=== PATIENT | male | born 1965 | race Caucasian/White ===

== ENCOUNTER 2022-08-15 10:36 | Emergency (ER) | payer MEDICAID, SELFPAY ==
[2022-08-15 11:02] VITALS: BP 218/130; PULSE 74; RESP 18; TEMP 36.5; O2SAT 98; BMI 22.9
--- NOTE | 2022-08-15 11:18 | W.ED.GENADLT ---
HPI - General Adult General: Chief complaint: Dizziness Stated complaint: High Blood Pressure Time Seen by Provider: 08/15/22 11:09 History of Present Illness: [57]yo patient w/ x hx of HTN not currently on medication presenting to the ED with complaints that his BP is not well controlled. Patient tells me that earlier today, patient went to his primary care's office and was found to have elevated blood pressure. Patient was then told to come to the emergency room. Patient was previously on blood pressure medicine in 2016 on lisinopril atenolol. Patient has been seen no longer takes any medication since then. However, the patient noticed today BP is uncontrolled. Denies chest pain, SOB, palpitation, N/V/D, pain radiating to the shoulder, headache, vision changes, LOC, or focal neurological deficits. Patient also denies light-headedness, syncope, vertigo abdominal pain, back pain. Tolerating PO meds without issues. Onset: chronic Duration: ongoing Location: home Severity: mild Associated symptoms: Deny chest pain, dyspnea, nausea, rash, palpitations or vomiting Review of Systems Const: Denies: fever(s) or chills Eyes: Denies: change in vision ENMT: Denies: mouth pain Card: Denies: chest pain or palpitations Resp: Denies: dyspnea or non-productive cough GI: Denies: abdominal pain, nausea, vomiting or diarrhea : Denies: dysuria Musc: Denies: extremity pain Skin/Breast: Denies: rash or new lesions Neuro: Denies: weakness in extremities Psych: Reports: other (Normal mood) Eron/Lymph: Denies: easy bruising [facility] ED PFSH: Medical History (Updated 08/15/22 @ 12:37 by Leatha Huynh MD) Psychiatric care Physical Exam Const: COMMON NORMALS: alert HENMT: COMMON NORMALS: atraumatic HEAD & SCALP: atraumatic MOUTH: moist mucous membranes not abnormal Eye: COMMON NORMALS: EOMs intact bilaterally and conjunctivae normal CONJUNCTIVA: Yes conjunctivae normal Neck/C-Spine: COMMON NORMALS: full ROM and supple Resp: COMMON NORMALS: normal respiratory effort and clear to auscultation bilaterally AUSCULTATION: clear to auscultation bilaterally Cardio: COMMON NORMALS: regular rate RATE: regular rate GI: COMMON NORMALS: Soft to palpation and non-tender PALPATION: Yes Soft to palpation Extremity: COMMON NORMALS: full ROM Neuro: SENSORIUM/ORIENTATION: Yes alert MOTOR EXAM: No Abnormal motor strength present and Other motor observations present (no focal motor deficits) Psych: COMMON NORMALS: speech normal SPEECH: Yes normal speech MOOD & AFFECT: Yes euthymic mood Course Vital Signs: Vital signs: Vital Signs Temperature 97.7 F 08/15/22 11:02 Pulse Rate 74 08/15/22 11:02 Respiratory Rate 18 08/15/22 11:02 Blood Pressure 180/122 08/15/22 14:12 Pulse Oximetry 98 08/15/22 11:02 Oxygen Delivery Me thod 08/15/22 11:02 MDM - General Adult Medical Decision Making [57]yo patient w/ hx of HTN not currently on medicationmedications presenting to the ED with high BP readings x 1 day without other medical complaints. BP in the ED of . Rest of exam including full neuro exam intact. Given presentation, history and exam, I do not suspect aortic dissection, hypertensive encephalopathy, intracranial hemorrhage, ACS, TIA/CVA, flash pulmonary edema. Intervention: Nifedipine 30mg x 1 PRN elevated BP [12:45pm] On reassessment, BP improved on reassessment. Patient continues to be symptom-free at this time. Do not suspect an emergent cause., Patient is noted to have creatinine 1.3. Discussed this extensively with patient and instructed that he needs to follow-up with his primary care provider for reassessment kidney function in a week and start hypertension meds. Discussed with the patient the importance of logging BPs and following up with his PCP for adjustment of BP if BP continues to be persistently high. Given return instructions. I have given patient follow up with our spring encaser to be seen by our outpatient by nerw PCP for management of blood pressure. Patient aware of a call from our spring encaser to schedule for appointment(s) and verbalizes understanding of the importance of following up. Patient requests for lisinopril and atenolol as he reports those worked for him in the past. Rx: Amlodipine 5mg QDaily for HTN, lisinorpil 40mg for hypertension, and atenolol 50mg for hypertension Based on history, exam, vital signs, and work up (as indicated) I do not suspect an ongoing emergent medical condition, and I believe the patient is safe for discharge and outpatient follow-up. The plan of care was discussed with the patient and all questions were answered. The patient agrees with the plan of care and is discharged in stable condition with verbal and written instructions, and verbalized understanding and ability to comply. I discussed the diagnosis and treatment plan at length with the patient. The patient understands signs and symptoms (including those which are new or worsening) which should prompt return to the ED. The patient is to seek prompt outpatient follow-up as noted verbally and/or in the discharge instructions. At the time of discharge the patient is well-appearing, well-hydrated, non-toxic, and assures appropriate follow-up as an outpatient. Lab Data : 08/15/22 11:08/15/22 11: Laboratory Results WBC 8.4 10^3/uL (4.0-10.0) 08/15/22 11: RBC 4.16 10^6/uL (4.1-5.3) 08/15/22 11:27 Hgb 12.5 g/dL (11.7-16.6) 08/15/22 11:27 Hct 38.3 % (42.0-52.0) L 08/15/22 11:27 MCV 92.1 fl (80-94) 08/15/22 11:27 MCH 30.0 pg (28.0-34.0) 08/15/22 11:27 MCHC 32.6 g/dL (30.0-36.0) 08/15/22 11: RDW 13.1 % (12.1-15.1) 08/15/22 11:27 Plt Count 184 10^3/cmm (130-400) 08/15/22 11: MPV 11.4 fL (7.4-10.4) H 08/15/22 11:27 Neut % (Auto) 69.3 % 08/15/22 11: Lymph % (Auto) 21.9 % 08/15/22 11: [place] % (Auto) 7.5 % 08/15/22 11:27 Eos % (Auto) 0.7 % 08/15/22 11:27 Baso % (Auto) 0.2 % 08/15/22 11:27 Neut # (Auto) 5.83 10^3/uL (1.8-7.7) 08/15/22 11:27 Lymph # (Auto) 1.8 10^3/uL (0.8-4.8) 08/15/22 11:27 [place] # (Auto) 0.6 10^3/uL (0.2-0.9) 08/15/22 11:27 Eos # (Auto) 0.1 10^3/uL (0.0-0.8) 08/15/22 11:27 Baso # (Auto) 0.0 10^3/uL (0.0-0.1) 08/15/22 11:27 Nucleated RBC % (auto) 0 % 08/15/22 11:27 Nucleated RBCs # 0.0 /100WBC 08/15/22 11:27 Sodium 138 mmol/L (136-145) 08/15/22 11:27 Potassium 4.3 mmol/L (3.5-5.1) 08/15/22 11:27 Chloride 101 mmol/L (98-107) 08/15/22 11:27 Carbon Dioxide 27 mmol/L (22-29) 08/15/22 11:27 Anion Gap 14.3 (5-19) 08/15/22 11:27 BUN 25 mg/dL (6-20) H 08/15/22 11:27 Creatinine 1.3 mg/dL (0.7-1.2) H 08/15/22 11:27 GFR Calculation 56.7 mL/min (90-130) L 08/15/22 11:27 Glucose 94 mg/dL (65-115) 08/15/22 11:27 Calculated Osmolality 290 mOsm/kg (285-295) 08/15/22 11:27 Calcium 10.1 mg/dL (8.5-10.5) 08/15/22 11:27 Discharge Plan Discharge Patient Disposition: Home Clinical Impression: Hypertension, DONNA (acute kidney injury) Condition: Stable Prescriptions: New amlodipine 5 mg tablet 5 mg PO DAILY 14 Days Qty: 14 0RF lisinopril 40 mg tablet 40 mg PO DAILY 20 Days Qty: 20 0RF atenolol 50 mg tablet 50 mg PO DAILY 20 Days Qty: 20 0RF Discharge Orders: Discharge ED (Routine); Ordered 08/15/22 Ordered By: Leatha Huynh Discharge Diet: Advance as tolerated Discharge Activity: Increase activity as tolerated Patient Instructions: Hypertension (ED) Activity Restrictions/Additional Instructions: You need to follow-up with your primary care provider for further adjustment of your blood pressure. Your blood pressure puts you at risk for developing strokes and heart attack. Therefore it is very important for you to follow-up with this number to see if the numbers improve gradually. Because blood pressure adjustment is a gradual process, were not able to change it in 1 visit. Therefore please log your blood pressure and follow-up with your primary care provider in the next 72 hours for further adjustment of your blood pressures. Please follow up with your primary care provider in1 week to check your kidney function again. Coding Level of Care Code ED Instructor Traffic Safety for Chg Fwd Exam Comprehensive
[2022-08-15 11:34] LABS: Basophils % 0.2 %; Eosinophils # 0.1 10^3/uL (0.0-0.8); Eosinophils % 0.7 %; Hematocrit 38.3 % (42.0-52.0); Hemoglobin 12.5 g/dL (11.7-16.6); Lymphocytes # 1.8 10^3/uL (0.8-4.8); Lymphocytes % 21.9 %; Mean Corpuscular HGB Conc 32.6 g/dL (30.0-36.0); Mean Corpuscular Volume 92.1 fl (80-94); Mean Platelet Volume 11.4 fL (7.4-10.4); Monocytes # 0.6 10^3/uL (0.2-0.9); Monocytes % 7.5 %; Neutrophils # 5.83 10^3/uL (1.8-7.7); Neutrophils % 69.3 %; Nucleated Red Blood Cells % 0 %; Platelet Count 184 10^3/cmm (130-400); Red Blood Count 4.16 10^6/uL (4.1-5.3); Red Cell Distribution Width 13.1 % (12.1-15.1); White Blood Count 8.4 10^3/uL (4.0-10.0)
--- NOTE | 2022-08-15 11:34 | PC.NURSE ---
pt reported he checked his bp today because he didn't feel good and felt dizzy, found it was elevated. denies chest pain, dyspnea, headache, nausea, vomiting, diarrhea, or other symptoms. reports he has been out of all his medications since 2016. pt alert and oriented, lung sounds clear, bowel sounds present. skin pink/warm/dry.
[2022-08-15 11:53] LABS: Anion Gap 14.3 (5-19); Blood Urea Nitrogen 25 mg/dL (6-20); Calcium 10.1 mg/dL (8.5-10.5); Carbon Dioxide 27 mmol/L (22-29); Chloride 101 mmol/L (98-107); Glomerular Filtration Rate 56.7 mL/min (90-130); Glucose 94 mg/dL (65-115); Osmolality Calculated 290 mOsm/kg (285-295); Potassium 4.3 mmol/L (3.5-5.1); Sodium 138 mmol/L (136-145)
[2022-08-15 11:58] VITALS: BP 192/128
[2022-08-15] MEDS: NIFEdipine ER (24 hr) 30 mg Tablet 60 MG PO ×2 (12:18→13:15)
[2022-08-15] MEDS: hyDRALAzine 25 mg Tablet PO (13:14)
[2022-08-15 13:43] VITALS: BP 168/139
[2022-08-15] MEDS: lisinopril 20 mg Tablet 40 MG PO (13:52)
[2022-08-15] MEDS: carvedilol 25 mg Tablet PO (13:52)
[2022-08-15 14:12] VITALS: BP 180/122
[2022-08-15 14:52] VITALS: BP 162/109; PULSE 98; RESP 16; O2SAT 98
--- NOTE | 2022-08-15 15:16 | DCPLANNER ---
lean manager had message to speak with patient about getting established with a primary care physician. senior marketing manager called phone number [phone], foster care case manager unable to speak with patient at this time. senior marketing manager did leave a voicemail for patient to return case loader operator phone call.
== END 2022-08-15 14:53 | disposition home or self-care (01) ==
PROVIDERS: Emergency Provider Emergency Medicine
DX: I10 Essential (primary) hypertension (principal); N17.9 Acute kidney failure, unspecified
CPT/HCPCS: 80048; 85025; 99283

== ENCOUNTER 2022-10-01 15:03 | Outpatient (CLI) | payer MEDICAID, SELFPAY ==
--- NOTE | 2022-10-01 15:26 | XRR_ITS ---
PROCEDURE INFORMATION: Exam: XR Right Hip Exam date and time: 10/01/2022 3:37 PM Age: 57 years old Clinical indication: Hip pain; Right hip; Patient HX: HX of polio; Additional info: R hip joint pain TECHNIQUE: Imaging protocol: Radiologic exam of the Right hip. Views: 1 view hip with pelvis when performed. COMPARISON: No relevant prior studies available. FINDINGS: Bones/joints: There is severe osteoarthritis with asymmetric narrowing of the joint space in the superior and anterior aspect. There is sclerosis of the superior aspect of the femoral head as well as superior acetabulum. The sclerotic changes in the femoral head are somewhat wedge-shaped and the potential for avascular necrosis should be ruled out. No acute bony abnormalities seen. Soft tissues: Unremarkable. XR/XR hip RT 2-3V wo/w pel* [id number] IMPRESSION: 1. Severe osteoarthritis right hip 2. Rule out avascular necrosis right femoral head. 3. Otherwise negative for acute bony abnormality
== END 2022-10-01 15:04 | disposition home or self-care (01) ==
LOC: RAD 15:07
PROVIDERS: PCP Family Medicine; Visit Provider Family Medicine
DX: M16.11 Unilateral primary osteoarthritis, right hip (principal)
CPT/HCPCS: 73502

== ENCOUNTER 2022-11-03 17:15 | Inpatient (IN) | payer MEDICAID, SELFPAY ==
[2022-11-03 17:29] VITALS: BP 186/97; PULSE 73; RESP 15; TEMP 36.8; O2SAT 98
--- NOTE | 2022-11-03 17:39 | ED.C_ITS ---
HPI - Psych General: Chief Complaint: Psychiatric Symptoms Stated Complaint: SI Time Seen by Provider: 11/03/22 17:39 History of Present Illness: Mr. Cazares is a 57-year-old gentleman with extensive history of substance abuse presenting to the emergency department due to depression with suicidal ideation. He reports symptoms of been worsening for a number of months and have become to the point that they are debilitating. His family describes erratic behavior and he describes episodes of crying for no reason. He has sleep disturbance and suicidal thoughts. Intensity symptoms moderate to severe. Course has worsened. No other specific changes in health, exacerbating, or alleviating factors identified. Onset (ago): month(s) Duration: getting worse Associated psychiatric symptoms: depression and racing thoughts Review of Systems General: Reports: 10 or more systems reviewed and unremarkable except in HPI and below PFSH ED PFSH: Medical History Depression Psychiatric care Social History Smoking and tobacco status: current every day smoker Physical Exam Const: COMMON NORMALS: alert GENERAL APPEARANCE: cooperative and well developed HENMT: COMMON NORMALS: normocephalic and atraumatic HEAD & SCALP: normocephalic and atraumatic Eye: COMMON NORMALS: conjunctivae normal CONJUNCTIVA: Yes conjunctivae normal SCLERA: sclerae normal Neck/C-Spine: COMMON NORMALS: supple GENERAL: Yes trachea midline Resp: COMMON NORMALS: normal respiratory effort EFFORT & INSPECTION: Yes able to speak in complete sentences Cardio: COMMON NORMALS: regular rate and regular rhythm RATE: regular rate RHYTHM: regular rhythm GI: COMMON NORMALS: Soft to palpation PALPATION: Yes Soft to palpation and No Tenderness to palpation present (GI) Extremity: GENERAL: Yes normal exam except as noted and No edema Neuro: COMMON NORMALS: moves all extremities SENSORIUM/ORIENTATION: Yes alert and No Orientation impaired Psych: COMMON NORMALS: mental status grossly normal and Normal thought process present MOOD & AFFECT: Yes depressed mood THOUGHT PROCESS: Normal thought process present Course Vital Signs: Vital signs: Vital Signs Temperature 98.3 F 11/05/22 18:10 Pulse Rate 99 11/05/22 18:10 Respiratory Rate 18 11/05/22 18:10 Blood Pressure 126/83 11/05/22 18:10 Pulse Oximetry 96 11/05/22 18:10 Oxygen Delivery Me thod 11/05/22 08:55 MDM - Psych Medical Decision Making 57-year-old gentleman presenting to the emerged department for worsening depression. Exam as above. Patient is calm and cooperative. EKG notable for sinus rhythm with nonspecific ST segment abnormalities. No significant illogical metabolic abnormalities. No UTI. Toxic ingestions negative. Urine drug screen positive for THC. Patient positive for flu however no respiratory symptoms. Given worsening symptoms it is reasonable to pursue inpatient management. Based on ED evaluation at this point there is no obvious condition that would preclude the patient from inpatient management and psychiatric symptoms. The results of ED evaluation were discussed with the patient including plan for admission due to requirement for level of care not available if discharged to prevent significant worsening/deterioration. Patient agreeable with plan. Discussed with psychiatry service who was agreeable to admit patient. Medical Records I reviewed the patient's medical records. Lab Data I reviewed the patient's lab results. 11/03/22 19:21 11/03/22 19:21 Laboratory Results Urine Color Yellow (Yellow) 11/03/22 19:03 Urine Appearance Clear (CLEAR) 11/03/22 19:03 Urine pH 5 (5-7) 11/03/22 19:03 Ur Specific [place] 1.020 (1.005-1.030) 11/03/22 19:03 Urine Protein Neg (Negative) 11/03/22 19:03 Urine Glucose (UA) Norm (Normal) 11/03/22 19:03 Urine Ketones 1+ (Negative) H 11/03/22 19:03 Urine Blood Neg (Negative) 11/03/22 19:03 Urine Nitrate Negative (Negative) 11/03/22 19:03 Urine Bilirubin Neg (Negative) 11/03/22 19:03 Urine Urobilinogen 1 mg/dL (Negative) H 11/03/22 19:03 Ur Leukocyte Esterase Negative (Negative) 11/03/22 19:03 Urine Opiates Screen Negative ng/mL (Negative) 11/03/22 19:03 Ur Barbiturates Screen Negative ng/mL (Negative) 11/03/22 19:03 Ur Phencyclidine Scrn Negative ng/mL (Negative) 11/03/22 19:03 Ur Amphetamines Screen Negative ng/mL (Negative) 11/03/22 19:03 U Benzodiazepines Scrn Negative ng/mL (Negative) 11/03/22 19:03 Urine Cocaine Screen Negative ng/mL (Negative) 11/03/22 19:03 U Marijuana (THC) Screen Positive ng/mL (Negative) H 11/03/22 19:03 SARS-CoV-2 Ag (Rapid) Negative (Negative) 11/03/22 09:40 Discharge Plan Discharge Patient Disposition: Admitted As Inpatient Admit Provider: Romain Pace Clinical Impression: Suicidal ideation, Depression Condition: Stable Coding Level of Care Code ED Food Service Sales Representatives for [employer]
[2022-11-03 19:34] LABS: Basophils % 0.5 %; Eosinophils # 0.1 10^3/uL (0.0-0.8); Eosinophils % 1.6 %; Hematocrit 42.6 % (42.0-52.0); Hemoglobin 13.9 g/dL (11.7-16.6); Lymphocytes # 2.2 10^3/uL (0.8-4.8); Lymphocytes % 33.4 %; Mean Corpuscular HGB Conc 32.6 g/dL (30.0-36.0); Mean Corpuscular Hemoglobin 29.6 pg (28.0-34.0); Mean Corpuscular Volume 90.8 fl (80-94); Monocytes # 0.4 10^3/uL (0.2-0.9); Monocytes % 6.5 %; Neutrophils # 3.72 10^3/uL (1.8-7.7); Neutrophils % 57.8 %; Nucleated Red Blood Cells % 0 %; Platelet Count 240 10^3/cmm (130-400); Red Blood Count 4.69 10^6/uL (4.1-5.3); Red Cell Distribution Width 12.9 % (12.1-15.1); White Blood Count 6.4 10^3/uL (4.0-10.0)
--- NOTE | 2022-11-03 19:37 | ECG_ITS ---
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 Measurements Intervals [place] Rate: 65 P: 52 WI: 162 QRS: 77 QRSD: 93 T: 67 QT: 383 QTc: 399 Interpretive Statements SINUS RHYTHM NONSPECIFIC T-WAVE ABNORMALITY No previous ECG available for comparison Electronically Signed On 11-04-2022 5:55:19 [employer] by Latoya Aguillon M.D. [email or web address]
[2022-11-03 19:46] LABS: Amphetamines Screen Urine Negative (Negative); Barbiturates Screen Urine Negative (Negative); Benzodiazepines Screen Urine Negative (Negative); Cocaine Screen Urine Negative (Negative); Opiate Screen Urine Negative (Negative); PCP Screen Urine Negative (Negative); THC Screen Urine Positive (Negative)
[2022-11-03 19:58] LABS: Add Urine Microscopic? NO; Charge for UA Resulting for Rev
[2022-11-03 20:02] LABS: Blood Urine Neg (Negative); Glucose Urine UA Norm (Normal); Ketones Urine 1+ (Negative); Protein Urine Neg (Negative); Urine Appearance Clear (CLEAR); Urine Color Yellow (Yellow); pH Urine 5 (5-7)
[2022-11-03 20:03] LABS: Bilirubin Urine Neg (Negative); Leukocyte Esterase Urine Negative (Negative); Nitrate Urine Negative (Negative); Urobilinogen Urine 1 mg/dL (Negative)
[2022-11-03 20:11] LABS: Acetaminophen < 5.0 ug/mL (10-30); Alanine Aminotransferase 13 U/L (0-41); Albumin Level 4.4 g/dL (3.5-5.2); Alkaline Phosphatase 94 U/L (40-130); Anion Gap 12.9 (5-19); Aspartate Amino Transferase 23 U/L (0-40); Blood Urea Nitrogen 22 mg/dL (6-20); Calcium 9.8 mg/dL (8.5-10.5); Carbon Dioxide 28 mmol/L (22-29); Chloride 101 mmol/L (98-107); Globulin 2.9 g/dL (1.3-4.6); Glomerular Filtration Rate 68.8 mL/min (90-130); Glucose 115 mg/dL (65-115); Osmolality Calculated 290 mOsm/kg (285-295); Potassium 3.9 mmol/L (3.5-5.1); Salicylate < 0.3 mg/dL (3-10); Sodium 138 mmol/L (136-145); Thyroid Stimulating Hormone 1.84 uIU/mL (0.27-4.20); Total Bilirubin 0.3 mg/dL (0.15-1.2); Total Protein 7.3 g/dL (6.6-8.7)
[2022-11-03 20:12] LABS: Alcohol Level < 10 mg/dL (0-10)
[2022-11-03 20:30] LABS: Influenza A by IFA Positive (Negative); Influenza B by IFA Negative (Negative)
[2022-11-03 20:49] VITALS: BP 157/86; PULSE 68; RESP 16; O2SAT 97
[2022-11-03 20:50] VITALS: BP 157/86; PULSE 68; RESP 16; O2SAT 97
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
[2022-11-03 22:00] VITALS: BP 171/104; PULSE 75; RESP 18; TEMP 36.8; O2SAT 96
[2022-11-03] MEDS: hyDROXYzine 25 mg Capsule 50 MG PO (22:11)
[2022-11-04 06:00] VITALS: BP 195/65; PULSE 79; RESP 19; TEMP 36.8; O2SAT 94
[2022-11-04] MEDS: citalopram 20 mg Tablet PO (08:53)
[2022-11-04] MEDS: lisinopril 10 mg Tablet PO (08:54)
[2022-11-04] MEDS: levothyroxine 112 mcg Tablet PO (08:54)
[2022-11-04] MEDS: docusate sodium 100 mg Capsule PO (08:54)
[2022-11-04] MEDS: amlodipine 10 mg Tablet PO (08:54)
[2022-11-04 10:51] LABS: SARS Covid-2 Antigen Negative (Negative)
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
[2022-11-04] MEDS: nicotine 2 mg Gum BUCCAL (12:04)
--- NOTE | 2022-11-04 12:15 | PC.OT ---
PER RN, HOLD OT EVAL AT THIS TIME PATIENT IS FLU A +. WILL CHECK BACK MEDICALLY APPROPRIATE.
[2022-11-04 13:56] VITALS: BP 170/92; PULSE 79; RESP 18; TEMP 36.6; O2SAT 94
[2022-11-04] MEDS: nicotine 21 mg Patch 1 PATCH TRANSDERMA (14:47)
[2022-11-04] MEDS: hyDROXYzine 25 mg Capsule 50 MG PO (15:40)
[2022-11-04] MEDS: atorvastatin 40 mg Tablet PO (17:25)
[2022-11-04 17:26] VITALS: BP 159/99; PULSE 71; RESP 18; TEMP 36.7; O2SAT 99
[2022-11-04] MEDS: trazodone 50 mg Tablet PO (19:23)
[2022-11-04 20:26] VITALS: BP 171/83; PULSE 74; RESP 17; TEMP 36.7; O2SAT 96
[2022-11-05 06:00] VITALS: RESP 18
[2022-11-05 08:55] VITALS: BP 153/93; PULSE 70; RESP 16; TEMP 36.7; O2SAT 96
[2022-11-05] MEDS: amlodipine 10 mg Tablet PO (08:58)
[2022-11-05] MEDS: citalopram 20 mg Tablet PO (08:59)
[2022-11-05] MEDS: docusate sodium 100 mg Capsule PO (08:59)
[2022-11-05] MEDS: levothyroxine 112 mcg Tablet PO (08:59)
[2022-11-05] MEDS: lisinopril 10 mg Tablet PO (08:59)
--- NOTE | 2022-11-05 09:39 | W.PM.NPUPNS ---
Subjective NPU Subjective: Patient seen on rounds. He reports no suicidal ideation, and reports depression, he reports that he has limited supports. He reports that he is tired of being in the hospital in isolation due to the influenza and had requested to leave AMA. Mental Status Exam MSE Comments: This is a well nourished, well developed, short white male with hospital scrubs on with limited grooming and eye contact. No abnormal movements except for mild psychomotor retardation. Cooperative with exam in mild distress. Speech was decreased rate and volume. Mood described as a little depressed, affect is slightly restricted. His thought process was linear and organized. Thought content: patient denies suicidal or homicidal ideation, no delusions reported or noted and denies any auditory or visual hallucinations. Attention and concentration are intact and memory appeared reliable but none were formally tested. He is alert and oriented times three. Insight and judgment are limited. Impulse control appeared adequate. Vitals/I&O/Wt Last Vital Signs Temp 98.0 F 11/04/22 20:26 Pulse 74 11/04/22 20:26 Resp 18 11/05/22 06:00 BP 171/83 11/04/22 20:26 Pulse Ox 96 11/04/22 20:26 O2 Del Method 11/03/22 21:00 Weight last 48 hrs Weight 83.915 kg Data NPU 11/03/22 19:21 11/03/22 19:21 A&P Assessment and plan (1) Major depressive disorder: (2) Suicidal ideation: Plan This is a 57 year old white man with a history of trauma, depression and genetic loading for mental health, addiction and lethality issues who presents reporting depression and open to starting a medication at this time. 1. Patient requested discharge AMA. Does not appear to be meeting criteria for involuntary hospitalization and able to contract for safety at this time. 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
[2022-11-05] MEDS: acetaminophen 325 mg Tablet 650 MG PO (09:50)
[2022-11-05] MEDS: nicotine 4 mg lozenge MUCOUS MEM (10:31)
[2022-11-05 14:00] VITALS: BP 126/83; PULSE 99; RESP 18; TEMP 36.8; O2SAT 96
--- NOTE | 2022-11-05 18:00 | PC.NURSE ---
Pt noted to be sitting in the dining room eating his evening meal. When pt reminded he needed to be in his room to eat because of his influenza results, pt became angry saying he wasn't going to stay in his room because he wasn't sick and he was just going to leave. Charge nurse notified. She went to the dining room and redirected the pt. He angrily returned to his room, again saying he wanted to just leave then.
[2022-11-05] MEDS: atorvastatin 40 mg Tablet PO (18:06)
[2022-11-05 18:10] VITALS: BP 126/83; PULSE 99; RESP 18; TEMP 36.8; O2SAT 96
--- NOTE | 2022-11-05 18:50 | PC.NURSE ---
Pt became rude with staff informing us he could leave. You aren't doing anything for me anyway. Charge nurse contacted MD about pt's behavior, unwillingness to eat in his room due to his Influenza A status. He said, I'm not sick. Staff discussed the possibility he was carrying the virus vs. being sick from it. Pt wasn't interested in this information. He desired to leave AMA. Pt took his 1800 meds except his colace, then changed into his clothes and left the hospital with his belongings.
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
== END 2022-11-05 18:11 | disposition left against medical advice (07) | DRG 881 ==
LOC: ER 19:09 → NP 20:24
PROVIDERS: Admitting Provider Psychiatry & Neurology Psychiatry; Emergency Provider Emergency Medicine; PCP Family Medicine; Visit Provider Psychiatry & Neurology Psychiatry
DX: F32.9 Major depressive disorder, single episode, unspecified (principal); R45.851 Suicidal ideations; J10.1 Influenza due to other identified influenza virus with other respiratory manifestations; Z53.29 Procedure and treatment not carried out because of patient's decision for other reasons; Z86.12 Personal history of poliomyelitis; F43.10 Post-traumatic stress disorder, unspecified; Z59.00 Homelessness unspecified; M54.31 Sciatica, right side; F17.200 Nicotine dependence, unspecified, uncomplicated; Z88.0 Allergy status to penicillin
CPT/HCPCS: 80053; 80306; 80307; 81003; 84443; 85025; 87426; 87804; 93005; 99285

== ENCOUNTER 2022-11-05 21:13 | Inpatient (IN) | payer MEDICAID, SELFPAY ==
[2022-11-05 21:21] VITALS: BP 149/103; PULSE 76; RESP 18; TEMP 36.8; O2SAT 97; BMI 27.6
--- NOTE | 2022-11-05 22:01 | W.ED.PSYCHS ---
HPI - Psych General: Chief Complaint: Psychiatric Symptoms Stated Complaint: SI Time Seen by Provider: 11/05/22 21:46 Source: patient Mode of arrival: ambulatory Limitations: no limitations History of Present Illness: 57-year-old male who had been admitted to the [facility] for suicidal ideation had been on isolation up there for influenza he just laughed roughly 30 minutes ago as he is sick and being on isolation he states that he immediately regretted it and he is continue to have suicidal ideations and rechecked in 1 to be readmitted denies any worsening proving factors. Associated symptoms: Reports depression Review of Systems Const: Denies: fever(s), chills, body aches or change in appetite Eyes: Denies: blurry vision or eye discomfort ENMT: Denies: throat pain or dental pain Card: Denies: chest pain Resp: Denies: dyspnea GI: Denies: abdominal pain, nausea, vomiting or diarrhea : Denies: dysuria Musc: Denies: neck pain or back pain Skin/Breast: Denies: rash Neuro: Denies: headache(s) Psych: Reports: depression Eron/Lymph: Denies: easy bruising All/Imm: Denies: urticaria PFSH ED PFSH: Medical History Psychiatric care Social History Smoking and tobacco status: current every day smoker Physical Exam Const: COMMON NORMALS: no acute distress, patient oriented x3 and healthy appearing HENMT: COMMON NORMALS: normocephalic and atraumatic HEAD & SCALP: normocephalic and atraumatic Eye: COMMON NORMALS: Equal, round and reactive pupils present and EOMs intact bilaterally PUPIL: Yes Equal, round and reactive pupils present Neck/C-Spine: COMMON NORMALS: full ROM and supple Chest: COMMONS NORMALS: normal inspection of the chest and normal palpation of entire chest wall Resp: COMMON NORMALS: normal respiratory effort, No retractions, No use of accessory muscles and clear to auscultation bilaterally AUSCULTATION: clear to auscultation bilaterally Cardio: COMMON NORMALS: regular rate, regular rhythm and No murmurs present (Cardio) RATE: regular rate RHYTHM: regular rhythm GI: COMMON NORMALS: Normal to inspection, nondistended, normoactive bowel sounds present, Soft to palpation, non-tender and no masses PALPATION: Yes Soft to palpation Extremity: COMMON NORMALS: normal to inspection and full ROM Neuro: COMMON NORMALS: patient oriented x3, moves all extremities and no focal motor deficits Psych: COMMON NORMALS: mental status grossly normal, Normal thought process present and cooperative MOOD & AFFECT: Yes depressed mood THOUGHT PROCESS: Normal thought process present Skin: COMMON NORMALS: no rashes or lesions noted and no wounds GENERAL SKIN EXAM: no rashes or lesions noted Course Vital Signs: Vital signs: Vital Signs Temperature 98.2 F 11/05/22 21:21 Pulse Rate 76 11/05/22 21:21 Respiratory Rate 18 11/05/22 21:21 Blood Pressure 149/103 11/05/22 21:21 Pulse Oximetry 97 11/05/22 21:21 Oxygen Delivery Me thod Nasal Cannula 11/05/22 21:21 MDM - Psych Medical Decision Making Patient presents for suicidal ideation he just left the [facility] as he was on isolation due to flu he states that he did regret it and wants to be readmitted I did speak to Dr. Pace and will readmit patient to the [facility] Discharge Plan Discharge Patient Disposition: Admitted As Inpatient Clinical Impression: Suicidal ideation Condition: Stable Prescriptions: No Action lisinopril 10 mg Tablet 10 mg PO DAILY atorvastatin 40 mg Tablet 40 mg PO QPM hydroxyzine pamoate 50 mg Capsule 50 mg PO TID PRN (Reason: Anxiety) citalopram 20 mg Tablet 20 mg PO DAILY amlodipine 10 mg Tablet 10 mg PO DAILY docusate sodium 100 mg Tablet 100 mg PO BID levothyroxine 112 mcg Tablet 112 mcg PO DAILY melatonin 5 mg Tablet 5 mg PO BEDTIME Referrals: Sana Villafana DO [Primary Care Provider] - Coding Level of Care Code ED [employer] Supervisor for [employer]
[2022-11-05 22:35] VITALS: BP 141/98; PULSE 66; RESP 18; O2SAT 97
[2022-11-06 06:00] VITALS: RESP 18
[2022-11-06] MEDS: citalopram 20 mg Tablet PO (08:49)
[2022-11-06] MEDS: lisinopril 10 mg Tablet PO (08:49)
[2022-11-06] MEDS: levothyroxine 112 mcg Tablet PO (08:50)
[2022-11-06] MEDS: acetaminophen 325 mg Tablet 650 MG PO (08:50)
[2022-11-06] MEDS: amlodipine 10 mg Tablet PO (08:50)
[2022-11-06 09:06] VITALS: BP 138/89; PULSE 66; RESP 16; TEMP 36.6; O2SAT 98
--- NOTE | 2022-11-06 13:32 | DCPLANNER ---
Imm was given to pt and explained rights and copy placed in his file.
[2022-11-06 14:00] VITALS: RESP 18
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
[2022-11-06] MEDS: atorvastatin 40 mg Tablet PO (17:57)
[2022-11-06] MEDS: docusate sodium 100 mg Capsule PO (17:57)
[2022-11-06] MEDS: trazodone 50 mg Tablet PO (20:05)
[2022-11-06 22:00] VITALS: RESP 18
[2022-11-07 06:00] VITALS: RESP 18
[2022-11-07] MEDS: citalopram 20 mg Tablet PO (10:05)
[2022-11-07] MEDS: buPROPion XL (24 HR) 150 mg Tablet PO (10:06)
[2022-11-07] MEDS: levothyroxine 112 mcg Tablet PO (10:06)
[2022-11-07] MEDS: amlodipine 10 mg Tablet PO (10:06)
[2022-11-07] MEDS: lisinopril 10 mg Tablet PO (10:07)
[2022-11-07] MEDS: docusate sodium 100 mg Capsule PO ×2 (10:07→18:05)
[2022-11-07 14:00] VITALS: RESP 18
[2022-11-07] MEDS: nicotine 2 mg Gum BUCCAL (15:41)
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
[2022-11-07] MEDS: ARIPiprazole 2 mg Tablet PO (18:05)
[2022-11-07] MEDS: atorvastatin 40 mg Tablet PO (18:05)
[2022-11-07] MEDS: trazodone 50 mg Tablet PO (20:21)
[2022-11-07 22:00] VITALS: BP 112/75; PULSE 116; RESP 18; TEMP 37.4; O2SAT 95
[2022-11-08 06:00] VITALS: RESP 18
[2022-11-08] MEDS: levothyroxine 112 mcg Tablet PO (09:19)
[2022-11-08] MEDS: amlodipine 10 mg Tablet PO (09:19)
[2022-11-08] MEDS: docusate sodium 100 mg Capsule PO ×2 (09:20→20:56)
[2022-11-08] MEDS: citalopram 20 mg Tablet PO (09:20)
[2022-11-08] MEDS: buPROPion XL (24 HR) 150 mg Tablet PO (09:20)
[2022-11-08] MEDS: ARIPiprazole 2 mg Tablet PO (09:20)
[2022-11-08] MEDS: lisinopril 10 mg Tablet PO (09:20)
[2022-11-08] MEDS: nicotine 4 mg lozenge MUCOUS MEM ×2 (12:03→17:05)
[2022-11-08] MEDS: naproxen 500 mg Tablet PO (13:50)
[2022-11-08 14:00] VITALS: BP 127/87; PULSE 73; RESP 16; TEMP 37; O2SAT 96
--- NOTE | 2022-11-08 17:24 | W.PM.NPUPNS ---
Subjective NPU Subjective: Patient is 57-year-old white male admitted with history of PTSD aggression and depressed mood with a history of significant substance abuse reported. The patient had been calm and cooperative on the milieu. He reported continued depression but minimized any feelings of hopelessness. He stated that he needed better help with managing his anger. He reported that his energy remains low and he continued to show evidence of apathy on the unit. He denied any auditory or visual hallucinations. He reports that he had frequently regretted his explosive outbursts but states that he often felt that he had less control. Mental Status Exam MSE Comments: This is a well nourished, well developed, short white male with hospital scrubs on with limited grooming and eye contact. No abnormal movements except for mild psychomotor retardation. Cooperative with exam in mild distress. Speech was decreased rate and volume. Mood described as down, affect is mood congruent and restricted in range. Thought process was linear and organized. Thought content: patient denies suicidal or homicidal ideation, no delusions reported or noted and denies any auditory or visual hallucinations. Attention and concentration are intact and memory appeared reliable but none were formally tested. He is alert and oriented times three. Insight and judgment are limited. Impulse control is limited versus impaired. Vitals/I&O/Wt Last Vital Signs Temp 98.6 F 11/08/22 14:00 Pulse 73 11/08/22 14:00 Resp 16 11/08/22 14:00 BP 127/87 11/08/22 14:00 Pulse Ox 96 11/08/22 14:00 O2 Del Method 11/08/22 14:00 A&P Assessment and plan (1) Major depressive disorder: (2) Suicidal ideation: Plan This is a 57 year old white man with a history of trauma, depression and genetic loading for mental health, addiction and lethality issues who presents reporting depression and open to starting a medication at this time. 1. Continue current medications. Continue Wellbutrin 150 mg poq am, Celexa 20mg in am, Increase abilify at 5mg daily. 2. Encourage individual, group and milieu therapy 3. Continue q-15 minute check for safety 4. Recommend sober living treatment at the highest level of care to which the patient is willing to commit. 5. Flu positive. Will await hospitalists recomendations. Involuntary Hold Information 96 Hour Hold: 96 Hour Involuntary Admission: No Attestations NPU Medical Necessity Statement*: Inpatient hospitalization is medically necessary and the clinically appropriate intervention at this time. 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
[2022-11-08] MEDS: acetaminophen 325 mg Tablet 650 MG PO (18:15)
[2022-11-08] MEDS: atorvastatin 40 mg Tablet PO (18:15)
[2022-11-08] MEDS: trazodone 50 mg Tablet PO (20:55)
[2022-11-08 21:39] VITALS: BP 134/86; PULSE 78; RESP 16; TEMP 37; O2SAT 98
[2022-11-09 06:00] VITALS: RESP 16
[2022-11-09] MEDS: nicotine 4 mg lozenge MUCOUS MEM ×4 (08:45→23:21)
[2022-11-09] MEDS: naproxen 500 mg Tablet PO (09:36)
[2022-11-09] MEDS: citalopram 20 mg Tablet PO (09:36)
[2022-11-09] MEDS: lisinopril 10 mg Tablet PO (09:36)
[2022-11-09] MEDS: levothyroxine 112 mcg Tablet PO (09:36)
[2022-11-09] MEDS: amlodipine 10 mg Tablet PO (09:38)
[2022-11-09] MEDS: buPROPion XL (24 HR) 150 mg Tablet PO (09:38)
[2022-11-09] MEDS: ARIPiprazole 10 mg Tablet 5 MG PO (09:38)
[2022-11-09 14:00] VITALS: BP 129/86; PULSE 68; RESP 18; TEMP 36.9; O2SAT 95
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
[2022-11-09] MEDS: nicotine 2 mg Gum BUCCAL (15:29)
[2022-11-09] MEDS: docusate sodium 100 mg Capsule PO (18:03)
[2022-11-09] MEDS: atorvastatin 40 mg Tablet PO (18:03)
[2022-11-09 19:58] VITALS: BP 162/102; PULSE 70; RESP 18; TEMP 36.8; O2SAT 98
[2022-11-09] MEDS: risperiDONE 0.25 mg Tablet 0.5 MG PO (20:11)
[2022-11-10] MEDS: trazodone 50 mg Tablet PO ×2 (00:28→20:06)
--- NOTE | 2022-11-10 00:29 | PC.NURSE ---
PRN MED PT GIVEN 50MG TRAZADONE FOR INSOMNIA, WILL CONTINUE TO MONITOR.
[2022-11-10 08:00] VITALS: BP 133/88; PULSE 76; RESP 17; TEMP 36.8; O2SAT 97
[2022-11-10] MEDS: acetaminophen 325 mg Tablet 650 MG PO (08:31)
[2022-11-10] MEDS: amlodipine 10 mg Tablet PO (08:31)
[2022-11-10] MEDS: citalopram 20 mg Tablet PO (08:31)
[2022-11-10] MEDS: nicotine 4 mg lozenge MUCOUS MEM ×5 (08:31→20:44)
[2022-11-10] MEDS: buPROPion XL (24 HR) 300 mg Tablet PO (08:32)
[2022-11-10] MEDS: hyDROXYzine 25 mg Capsule 50 MG PO (08:32)
[2022-11-10] MEDS: levothyroxine 112 mcg Tablet PO (08:32)
[2022-11-10] MEDS: lisinopril 10 mg Tablet PO (08:32)
[2022-11-10] MEDS: naproxen 500 mg Tablet PO (10:28)
[2022-11-10 14:00] VITALS: BP 146/94; PULSE 81; RESP 18; TEMP 37.1; O2SAT 97
--- NOTE | 2022-11-10 17:06 | P.NPUPN_ITS ---
Subjective NPU Subjective: Patient is 57-year-old white male admitted with history of PTSD aggression and depressed mood with a history of significant substance abuse reported. Patient had reported that his depression was improving. He had been more social on the milieu. He reported no side effects from his medication. He reports that the ringing in his ears had gone away with the discontinuation of Abilify. He reported motivation for finding a new place to live and going into therapy to try to help him with his active chronic problems. The patient denied any feelings of hopelessness. He had reported improved sleep with the initiation of risperidone. Mental Status Exam MSE Comments: This is a well nourished, well developed, short white male with hospital scrubs on with limited grooming and eye contact. No abnormal movements except for mild psychomotor retardation. Cooperative with exam in mild distress. Speech was normal in rate and volume. Mood described as better., His affect is less restricted today. Thought process was linear and organized. Thought content: patient denies suicidal or homicidal ideation, no delusions reported or noted and denies any auditory or visual hallucinations. Attention and concentration are intact and memory appeared reliable but none were formally tested. He is alert and oriented times three. Insight and judgment are limited. Impulse control remains guarded. Vitals/I&O/Wt Last Vital Signs Temp 98.3 F 11/10/22 08:00 Pulse 76 11/10/22 08:00 Resp 17 11/10/22 08:00 BP 133/88 11/10/22 08:00 Pulse Ox 97 11/10/22 08:00 O2 Del Method 11/10/22 08:00 A&P Assessment and plan (1) Major depressive disorder: (2) Suicidal ideation: Plan This is a 57 year old white man with a history of trauma, depression and genetic loading for mental health, addiction and lethality issues who presents reporting depression and open to starting a medication at this time. 1. Continue current medications. Continue Wellbutrin XL 300 mg po q am, continue celexa at 20mg in am. Continue risperidone .5mg at night to target irritability and aggression. 2. Encourage individual, group and milieu therapy 3. Continue q-15 minute check for safety 4. Recommend sober living treatment at the highest level of care to which the patient is willing to commit. 5. Patient no longer contagious, seven days with no symptoms of influenza a positive on testing. Involuntary Hold Information 96 Hour Hold: 96 Hour Involuntary Admission: No Attestations NPU Medical Necessity Statement*: Inpatient hospitalization is medically necessary and the clinically appropriate intervention at this time. 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
[2022-11-10] MEDS: atorvastatin 40 mg Tablet PO (18:18)
[2022-11-10] MEDS: risperiDONE 0.25 mg Tablet 0.5 MG PO (20:04)
[2022-11-10 20:26] VITALS: BP 131/88; PULSE 73; RESP 18; TEMP 36.8; O2SAT 99
[2022-11-11 06:35] VITALS: BP 129/88; PULSE 85; RESP 20; TEMP 36.7; O2SAT 94
[2022-11-11] MEDS: nicotine 4 mg lozenge MUCOUS MEM ×2 (06:42→11:55)
[2022-11-11] MEDS: amlodipine 10 mg Tablet PO (08:37)
[2022-11-11] MEDS: levothyroxine 112 mcg Tablet PO (08:37)
[2022-11-11] MEDS: lisinopril 10 mg Tablet PO (08:37)
[2022-11-11] MEDS: citalopram 20 mg Tablet PO (08:37)
[2022-11-11] MEDS: buPROPion XL (24 HR) 300 mg Tablet PO (08:37)
[2022-11-11] MEDS: docusate sodium 100 mg Capsule PO (08:37)
[2022-11-11] MEDS: naproxen 500 mg Tablet PO (08:39)
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
[2022-11-11 11:26] VITALS: BP 129/88; PULSE 85; RESP 20; TEMP 36.7; O2SAT 94
[2022-11-11] MEDS: risperiDONE 0.25 mg Tablet 0.5 MG PO (13:33)
[2022-11-11] MEDS: atorvastatin 40 mg Tablet PO (13:33)
--- NOTE | 2022-11-22 11:35 | P.NPUDS_ITS ---
Diagnoses at Discharge Discharge Diagnosis (1) Major depressive disorder: Status: Acute (2) Suicidal ideation: Status: Resolved Reason for Visit Reason for Visit: SI Hospital Course Hospital Course Patient slowly acclimated to the individual, group and milieu therapies provided.? We continued his home medications including Celexa but added Wellbutrin XL and titrated to 300 mg, added Risperdal at night along with trazodone and he showed significant improvement. He worked with the treatment team to get connected with [facility] for possible rehab and he was able to contract for safety outside of the hospital, prior to discharge.?? During the hospitalization, patient had routine laboratory studies which were within normal limits except for few outliers.? Additionally there was a general medical evaluation which was also within normal limits and revealed no new acute processes. Discharge Summary: At the time of discharge, he denied psychosis or lethality.? Mood and anxiety were well managed.? Patient endorsed a plan to avoid all drugs of abuse and follow-up with the aftercare recommendations of the treatment team.? Patient was evaluated and deemed to be absent credible lethality, and had achieved the maximum benefit from an inpatient hospitalization, so was discharged. Involuntary Hold Information 96 Hour Hold: 96 Hour Involuntary Admission: No Discharge Data Vitals: Last Vital Signs Temp 98.1 F 11/11/22 11:26 Pulse 85 11/11/22 11:26 Resp 20 H 11/11/22 11:26 BP 129/88 11/11/22 11:26 Pulse Ox 94 11/11/22 11:26 O2 Del Method 11/10/22 08:00 Discharge Plan Discharge Patient Disposition: Home Condition: Stable Prescriptions: New trazodone 50 mg Tablet 50 mg PO BEDTIME PRN (Reason: Sleep) 30 Days Qty: 30 1RF bupropion HCl 300 mg Tablet Extended Release 24 Hr 300 mg PO DAILY 30 Days Qty: 30 1RF risperidone 0.5 mg tablet 0.5 mg PO BEDTIME 30 Days Qty: 30 1RF Continued lisinopril 10 mg Tablet 10 mg PO DAILY atorvastatin 40 mg Tablet 40 mg PO QPM hydroxyzine pamoate 50 mg Capsule 50 mg PO TID PRN (Reason: Anxiety) amlodipine 10 mg Tablet 10 mg PO DAILY docusate sodium 100 mg Tablet 100 mg PO BID levothyroxine 112 mcg Tablet 112 mcg PO DAILY melatonin 5 mg Tablet 5 mg PO BEDTIME citalopram 20 mg Tablet 20 mg PO DAILY 30 Days Qty: 30 1RF Discharge Orders: Discharge Order (Routine); Ordered 11/11/22 Ordered By: Romain Pace Referrals: [facility] [Other] - 4-7 days (Call to check on waiting list.) [facility] [Other] - 11/11/22 2:30 pm Sana Villafana DO [Primary Care Provider] - Minh Harris MD [Physician] - 11/22/22 (Follow up) Discharge Diet: Regular Discharge Activity: Resume usual activity Patient Instructions: Bupropion (By mouth), Trazodone (By mouth), Methamphetamine Use Disorder (DC), Suicide Prevention (DC), Opioid Safety Coding Level of Care Code Acute g DC note Diagnoses Major depressive disorder F32.9 Suicidal ideation R45.85
== END 2022-11-11 14:14 | disposition home or self-care (01) | DRG 881 ==
LOC: ER 22:04 → NP 22:36
PROVIDERS: Admitting Provider Psychiatry & Neurology Psychiatry; Emergency Provider Emergency Medicine; PCP Family Medicine; Visit Provider Psychiatry & Neurology Psychiatry
DX: F32.9 Major depressive disorder, single episode, unspecified (principal); R45.851 Suicidal ideations; Z59.02 Unsheltered homelessness; F17.210 Nicotine dependence, cigarettes, uncomplicated; F10.90 Alcohol use, unspecified, uncomplicated; F12.90 Cannabis use, unspecified, uncomplicated; F15.91 Other stimulant use, unspecified, in remission; Z86.12 Personal history of poliomyelitis; F43.10 Post-traumatic stress disorder, unspecified; Z88.0 Allergy status to penicillin
CPT/HCPCS: 97150; 97165; 99285

== ENCOUNTER 2022-12-05 11:05 | Outpatient (CLI) | payer MEDICAID, SELFPAY ==
--- NOTE | 2022-12-05 | MR_ITS ---
WS: [id number] MRI RIGHT HIP without CONTRAST. COMPARISON: RIGHT hip radiograph 10/01/2022 Multiplanar, multisequence imaging is performed without contrast. Severe narrowing of the RIGHT hip joint. There is bone upon bone and very slight lateral subluxation of the femoral head. Decreased signal on the T1 and proton density sequences involving the superior f emoral head measuring 4.1 x 1.6 cm. On the T2 sequences there is increased and variable signal in the femoral head. These findings are consistent with avascular necrosis with collapse of the cortex. Los s of the normal cortex superiorly. There is complete loss of the joint space. There are additional alexander bchondral cystic changes and edema in the superior acetabulum. Osteophytic ridging around the femoral head. There is a moderate-sized joint effusion with small loose bodies. Edema extends into the femoral neck . The LEFT hip is included on the STIR sequence of the pelvis. There is a very small amount of marrow e santana in the superior femoral head. Cannot confirm osteonecrosis at this time. There is a small LEFT j oint effusion. MR/MR hip RT wo con* [id number] IMPRESSION: 1. 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 2. Severe narrowing of the RIGHT hip joint. There is marrow edema and loss of cartilage also involving the superior acetabulum along with remodeling. 3. Additional marrow edema extends into the RIGHT femoral neck. 4. Moderate size RIGHT joint effusion with synovitis and a few small loose bod ies which may be cartilage. 5. Very small amount of marrow edema in the very superior LEFT femoral head.
== END 2022-12-05 11:06 | disposition home or self-care (01) ==
PROVIDERS: PCP Family Medicine; Visit Provider Family Medicine
DX: M16.11 Unilateral primary osteoarthritis, right hip (principal)
CPT/HCPCS: 73721

== ENCOUNTER 2022-12-05 11:05 | Outpatient (CLI) | payer MEDICAID, SELFPAY ==
--- NOTE | 2022-12-05 11:19 | US_ITS ---
WS: [id number] Complete ABDOMINAL ULTRASOUND HISTORY: RECURRENT ABDOMINAL PAIN COMPARISON: None available. Liver: 12.4 cm in length. Normal size liver. Ill-defined hyperechoic nodule in the central liver justin ures 10 x 15 x 12 mm. Most typical for a hemangioma. No additional liver nodules or masses. Portal Vein: Normal hepatopetal flow with monophasic waveform. Gallbladder: Normally distended with no gallstones, wall thickening or pericholecystic fluid. Pancreas: Completely obscured by bowel gas. CBD: 0.3 cm. Right kidney: 9.7 cm x 5.2 cm x 4.3 cm. No mass, cortical thickening or hydronephrosis. Left kidney: 10.7 cm x 5.1 cm x 4.7 cm. No solid mass, cortical thickening or hydronephrosis. Cortic al cyst inferior pole measures 11 x 14 x 9 mm. Spleen: Normal size and echogenicity. Abdominal aorta and IVC are within normal limits. No ascites. US/US abdomen complete* [id number] IMPRESSION: 1. Normal gallbladder. 2. Central hepatic echogenic mass is probably hemangioma. Consider confirmatio n by CT. Hepatic CT with dual phase imaging recommended. 3. Cortical cyst lower pole LEFT kidney.
== END 2022-12-05 11:06 | disposition home or self-care (01) ==
PROVIDERS: PCP Family Medicine; Visit Provider Family Medicine
DX: R10.9 Unspecified abdominal pain (principal); N28.1 Cyst of kidney, acquired
CPT/HCPCS: 76700

== ENCOUNTER → 2022-12-16 14:29 | Outpatient (BNVA) | payer MEDICAID, SELFPAY | PROVIDERS: PCP Family Medicine; Referring Provider Family Medicine; Visit Provider Student in an Organized Health Care Education/Training Program | DX: M16.11 Unilateral primary osteoarthritis, right hip (principal); M87.051 Idiopathic aseptic necrosis of right femur | CPT/HCPCS: 73502 ==

== ENCOUNTER 2023-01-03 15:00 | Inpatient (IN) | payer MEDICAID, SELFPAY ==
--- NOTE | 2023-01-03 15:03 | W.ED.PSYCHS ---
HPI - Psych General: Chief Complaint: Psychiatric Symptoms Stated Complaint: MHE Time Seen by Provider: 01/03/23 15:03 History of Present Illness: Mr Cazares is a 57-year-old gentleman with history of polysubstance abuse and major depressive disorder presenting to the emergency department for psychiatric symptoms. He reports being at his baseline health and had some sort of a mental episode while shopping with his friend. He does not recall specifically what happened but apparently went off on his friend. He denies similar episodes in the past. Denies other known specific provoking factors or changes in health. No other specific changes in health, exacerbating, or alleviating factors identified. Onset (ago): minute(s) Duration: changing over time History of same: Yes Relieving factors: none Exacerbating factors: none Associated psychiatric symptoms: depression and other Review of Systems General: Reports: 10 or more systems reviewed and unremarkable except in HPI and below PFSH ED PFSH: Medical History Avascular necrosis of femur head, right Depression Depression Psychiatric care Social History Smoking and tobacco status: current every day smoker Physical Exam Const: COMMON NORMALS: alert GENERAL APPEARANCE: cooperative and well developed HENMT: COMMON NORMALS: normocephalic and atraumatic HEAD & SCALP: normocephalic and atraumatic Eye: COMMON NORMALS: conjunctivae normal CONJUNCTIVA: Yes conjunctivae normal SCLERA: sclerae normal Neck/C-Spine: COMMON NORMALS: supple GENERAL: Yes trachea midline Resp: COMMON NORMALS: normal respiratory effort EFFORT & INSPECTION: Yes able to speak in complete sentences Cardio: COMMON NORMALS: regular rate and regular rhythm RATE: regular rate RHYTHM: regular rhythm GI: COMMON NORMALS: Soft to palpation PALPATION: Yes Soft to palpation and No Tenderness to palpation present (GI) PERCUSSION: normal to percussion Extremity: GENERAL: Yes normal exam except as noted and No edema Neuro: COMMON NORMALS: moves all extremities SENSORIUM/ORIENTATION: Yes alert and No Orientation impaired Psych: COMMON NORMALS: mental status grossly normal and Normal thought process present MOOD & AFFECT: Yes anxious THOUGHT PROCESS: Normal thought process present INSIGHT: Poor insight present (Psych) Course Vital Signs: Vital signs: Vital Signs Temperature 98.1 F 01/07/23 08:51 Pulse Rate 61 01/07/23 08:51 Respiratory Rate 18 01/07/23 08:51 Blood Pressure 146/88 01/07/23 08:51 Pulse Oximetry 97 01/07/23 08:51 Oxygen Delivery Me thod 01/04/23 06:00 MDM - Psych Medical Decision Making 57-year-old gentleman presenting for apparent acute psychiatric episode. Patient is quite anxious and provides limited insight. He is nontoxic in appearance. EKG notable for sinus rhythm, normal axis and intervals, no STEMI. Labs similar to prior with unremarkable hematologic and metabolic panel. Toxic ingestions negative. UDS positive for THC. CT head negative for acute pathology. Most likely etiology of patient's symptoms is psychiatric in nature. Based on ED evaluation at this point there is no obvious condition that would preclude the patient from inpatient management psychiatric concerns/symptoms. The results of ED evaluation were discussed with the patient including plan for admission due to requirement for level of care not available if discharged to prevent significant worsening/deterioration. Patient agreeable with plan. Discussed with psychiatry service who was agreeable to admit patient. Medical Records I reviewed the patient's medical records. Lab Data I reviewed the patient's lab results. 01/03/23 16:00 01/03/23 16:[address] 01/03/23 15:15 IMPRESSION: 1. No evidence of intracranial hemorrhage or mass effect. 2. Mild small vessel changes with moderate parenchymal volume loss. 3. No acute intracranial findings. Laboratory Results WBC 8.9 10^3/uL (4.0-10.0) 01/03/23 16:00 RBC 4.96 10^6/uL (4.1-5.3) 01/03/23 16:00 Hgb 14.5 g/dL (11.7-16.6) 01/03/23 16:00 Hct 45.2 % (42.0-52.0) 01/03/23 16:00 MCV 91.1 fl (80-94) 01/03/23 16:00 MCH 29.2 pg (28.0-34.0) 01/03/23 16:00 MCHC 32.1 g/dL (30.0-36.0) 01/03/23 16:00 RDW 13.5 % (12.1-15.1) 01/03/23 16:00 Plt Count 219 10^3/cmm (130-400) 01/03/23 16:00 MPV 11.0 fL (7.4-10.4) H 01/03/23 16:00 Neut % (Auto) 67.8 % 01/03/23 16:00 Lymph % (Auto) 22.7 % 01/03/23 16:00 Irwin % (Auto) 7.8 % 01/03/23 16:00 Eos % (Auto) 1.2 % 01/03/23 16:00 Baso % (Auto) 0.2 % 01/03/23 16:00 Neut # (Auto) 6.01 10^3/uL (1.8-7.7) 01/03/23 16:00 Lymph # (Auto) 2.0 10^3/uL (0.8-4.8) 01/03/23 16:00 Irwin # (Auto) 0.7 10^3/uL (0.2-0.9) 01/03/23 16:00 Eos # (Auto) 0.1 10^3/uL (0.0-0.8) 01/03/23 16:00 Baso # (Auto) 0.0 10^3/uL (0.0-0.1) 01/03/23 16:00 Nucleated RBC % (auto) 0 % 01/03/23 16:00 Nucleated RBCs # 0.0 /100WBC 01/03/23 16:00 Sodium 136 mmol/L (136-145) 01/03/23 16:00 Potassium 4.4 mmol/L (3.5-5.1) 01/03/23 16:00 Chloride 99 mmol/L (98-107) 01/03/23 16:00 Carbon Dioxide 26 mmol/L (22-29) 01/03/23 16:00 Anion Gap 15.4 (5-19) 01/03/23 16:00 BUN 16 mg/dL (6-20) 01/03/23 16:00 Creatinine 1.0 mg/dL (0.7-1.2) 01/03/23 16:00 GFR Calculation 76.7 mL/min (90-130) L 01/03/23 16:00 Glucose 163 mg/dL (65-115) H 01/03/23 16:00 Calculated Osmolality 287 mOsm/kg (285-295) 01/03/23 16:00 Calcium 9.8 mg/dL (8.5-10.5) 01/03/23 16:00 Total Bilirubin 0.4 mg/dL (0.15-1.2) 01/03/23 16:00 AST 17 U/L (0-40) 01/03/23 16:00 ALT 15 U/L (0-41) 01/03/23 16:00 Alkaline Phosphatase 88 U/L (40-130) 01/03/23 16:00 Total Protein 7.4 g/dL (6.6-8.7) 01/03/23 16:00 Albumin 4.5 g/dL (3.5-5.2) 01/03/23 16:00 Globulin 2.9 g/dL (1.3-4.6) 01/03/23 16:00 TSH 2.77 uIU/mL (0.27-4.20) 01/03/23 16:00 Salicylates < 0.3 mg/dL (3-10) L 01/03/23 16:00 Urine Opiates Screen Negative ng/mL (Negative) 01/03/23 16:53 Acetaminophen < 5.0 ug/mL (10-30) L 01/03/23 16:00 Ur Barbiturates Screen Negative ng/mL (Negative) 01/03/23 16:53 Ur Phencyclidine Scrn Negative ng/mL (Negative) 01/03/23 16:53 Ur Amphetamines Screen Negative ng/mL (Negative) 01/03/23 16:53 U Benzodiazepines Scrn Negative ng/mL (Negative) 01/03/23 16:53 Urine Cocaine Screen Negative ng/mL (Negative) 01/03/23 16:53 U Marijuana (THC) Screen Positive ng/mL (Negative) H 01/03/23 16:53 Ethyl Alcohol < 10 mg/dL (0-10) 01/03/23 16:00 Discharge Plan Discharge Patient Disposition: Admitted As Inpatient Admit Provider: Romain Pace Clinical Impression: Acute psychosis, Depression Condition: Stable Discharge Diet: Regular Discharge Activity: Resume usual activity Coding Level of Care Code ED Senior [employer] Specialist for [employer]
[2023-01-03 15:06] VITALS: BP 180/114; PULSE 95; RESP 18; TEMP 37.8; O2SAT 95; BMI 29.5
--- NOTE | 2023-01-03 15:15 | CT_ITS ---
WS: [id number] CT HEAD TECHNIQUE: Noncontrast CT of the head obtained from the skullbase to the vertex. CLINICAL INFORMATION: transient neurological episode COMPARISON: None. DLP: 1242.[address] scans at [facility] use at least one of these dose optimization techniques: automated e xposure control; mA and/or kV adjustment per patient size (includes targeted exams where dose is matc hed to clinical indication); or iterative reconstruction. FINDINGS: No evidence of intracranial hemorrhage or mass effect. Ventricular system and basal cisterns are dunham nt. Mild small vessel changes with moderate parenchymal volume loss. No extra-axial fluid collections . No evidence of mass or mass effect. Paranasal sinuses and mastoid air cells are well aerated. .Normal visualized soft tissues. CT/CT head wo con* [id number] IMPRESSION: 1. No evidence of intracranial hemorrhage or mass effect. 2. Mild small vessel changes with moderate parenchymal volume loss. 3. No acute intracranial findings.
--- NOTE | 2023-01-03 15:42 | ECG_ITS ---
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 Measurements Intervals [place] Rate: 81 P: 22 LA: 143 QRS: 53 QRSD: 93 T: 48 QT: 361 QTc: 420 Interpretive Statements SINUS RHYTHM POSSIBLE LEFT ATRIAL ENLARGEMENT [-0.1mV P-WAVE IN V1/V2] Compared to ECG 11/03/2022 19:37:29 T-wave abnormality no longer present Electronically Signed On 01-03-2023 16:51:28 PURCHASING INTERN by Chelita Desouza M.D. [email or web address]
[2023-01-03 16:19] LABS: Basophils % 0.2 %; Eosinophils # 0.1 10^3/uL (0.0-0.8); Eosinophils % 1.2 %; Hematocrit 45.2 % (42.0-52.0); Hemoglobin 14.5 g/dL (11.7-16.6); Lymphocytes % 22.7 %; Mean Corpuscular HGB Conc 32.1 g/dL (30.0-36.0); Mean Corpuscular Hemoglobin 29.2 pg (28.0-34.0); Mean Corpuscular Volume 91.1 fl (80-94); Monocytes # 0.7 10^3/uL (0.2-0.9); Monocytes % 7.8 %; Neutrophils # 6.01 10^3/uL (1.8-7.7); Neutrophils % 67.8 %; Nucleated Red Blood Cells % 0 %; Platelet Count 219 10^3/cmm (130-400); Red Blood Count 4.96 10^6/uL (4.1-5.3); Red Cell Distribution Width 13.5 % (12.1-15.1); White Blood Count 8.9 10^3/uL (4.0-10.0)
[2023-01-03 16:46] LABS: Acetaminophen < 5.0 ug/mL (10-30); Alanine Aminotransferase 15 U/L (0-41); Albumin Level 4.5 g/dL (3.5-5.2); Alcohol Level < 10 mg/dL (0-10); Alkaline Phosphatase 88 U/L (40-130); Anion Gap 15.4 (5-19); Aspartate Amino Transferase 17 U/L (0-40); Blood Urea Nitrogen 16 mg/dL (6-20); Calcium 9.8 mg/dL (8.5-10.5); Carbon Dioxide 26 mmol/L (22-29); Chloride 99 mmol/L (98-107); Creatinine Clr Calc Pharmacy 89.6388; Globulin 2.9 g/dL (1.3-4.6); Glomerular Filtration Rate 76.7 mL/min (90-130); Glucose 163 mg/dL (65-115); Osmolality Calculated 287 mOsm/kg (285-295); Potassium 4.4 mmol/L (3.5-5.1); Salicylate < 0.3 mg/dL (3-10); Sodium 136 mmol/L (136-145); Thyroid Stimulating Hormone 2.77 uIU/mL (0.27-4.20); Total Bilirubin 0.4 mg/dL (0.15-1.2); Total Protein 7.4 g/dL (6.6-8.7)
[2023-01-03 18:54] LABS: Amphetamines Screen Urine Negative (Negative); Barbiturates Screen Urine Negative (Negative); Benzodiazepines Screen Urine Negative (Negative); Cocaine Screen Urine Negative (Negative); Opiate Screen Urine Negative (Negative); PCP Screen Urine Negative (Negative); THC Screen Urine Positive (Negative)
[2023-01-03 20:22] VITALS: BP 149/89; PULSE 70; RESP 16; O2SAT 93
[2023-01-03 21:44] VITALS: BP 154/98; PULSE 68; RESP 16; TEMP 36.6; O2SAT 94
[2023-01-03] MEDS: hyDROXYzine 25 mg Capsule 50 MG PO (22:27)
[2023-01-03] MEDS: OLANZapine 5 mg ODT PO (22:27)
[2023-01-03] MEDS: nicotine 4 mg lozenge MUCOUS MEM (22:30)
[2023-01-03] MEDS: atorvastatin 40 mg Tablet PO (23:23)
[2023-01-03] MEDS: mirtazapine 15 mg Tablet PO (23:23)
[2023-01-03] MEDS: risperiDONE 1 mg Tablet 0.5 MG PO (23:23)
[2023-01-04 06:00] VITALS: BP 122/80; PULSE 58; RESP 16; TEMP 36.4; O2SAT 95
[2023-01-04] MEDS: citalopram 20 mg Tablet 40 MG PO (10:32)
[2023-01-04] MEDS: levothyroxine 112 mcg Tablet PO (10:33)
[2023-01-04] MEDS: docusate sodium 100 mg Capsule PO ×2 (10:33→17:03)
[2023-01-04] MEDS: amlodipine 10 mg Tablet PO (10:33)
[2023-01-04] MEDS: buPROPion XL (24 HR) 300 mg Tablet PO (10:33)
[2023-01-04] MEDS: lisinopril 10 mg Tablet PO (10:33)
[2023-01-04] MEDS: hyDROXYzine 25 mg Capsule 50 MG PO ×2 (10:34→20:34)
[2023-01-04 14:00] VITALS: BP 133/92; PULSE 63; RESP 20; TEMP 36.6; O2SAT 96
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
[2023-01-04] MEDS: nicotine 4 mg lozenge MUCOUS MEM ×2 (16:11→18:46)
[2023-01-04 20:01] VITALS: BP 105/70; PULSE 91; RESP 18; TEMP 36.4; O2SAT 96
[2023-01-04] MEDS: mirtazapine 15 mg Tablet PO (21:35)
[2023-01-04] MEDS: atorvastatin 40 mg Tablet PO (21:35)
[2023-01-04] MEDS: risperiDONE 1 mg Tablet 0.5 MG PO (21:35)
[2023-01-05 06:00] VITALS: BP 116/76; PULSE 61; RESP 18; TEMP 36.5; O2SAT 94
[2023-01-05] MEDS: hyDROXYzine 25 mg Capsule 50 MG PO (08:56)
[2023-01-05] MEDS: docusate sodium 100 mg Capsule PO ×2 (08:57→17:19)
[2023-01-05] MEDS: citalopram 20 mg Tablet 40 MG PO (08:57)
[2023-01-05] MEDS: buPROPion XL (24 HR) 300 mg Tablet PO (08:57)
[2023-01-05] MEDS: levothyroxine 112 mcg Tablet PO (08:57)
[2023-01-05] MEDS: amlodipine 10 mg Tablet PO (08:57)
[2023-01-05] MEDS: lisinopril 10 mg Tablet PO (08:57)
[2023-01-05] MEDS: nicotine 4 mg lozenge MUCOUS MEM ×3 (08:57→17:19)
[2023-01-05 14:00] VITALS: BP 111/69; PULSE 86; RESP 18; TEMP 37.9; O2SAT 91
--- NOTE | 2023-01-05 17:52 | W.PM.NPUPNS ---
Subjective NPU Subjective: Patient presents today denying things being any better or different. He continues to deny having a insight into the episode occurred that led to his hospitalization. He did report having individuals number and said he would allow us to have a number and contact that person to get some collateral information on exactly what happened. Otherwise he has been appropriate on the unit and having no episodes here. Mental Status Exam MSE Comments: This is a well nourished, well developed, white male with hospital scrubs on with limited grooming and eye contact. No abnormal movements except for mild psychomotor agitation. More cooperative with exam in mild distress. Speech was normal rate rate and increased volume. Mood described as okay I guess, affect is congruent. Thought process, organized. Thought content: patient denies suicidal or homicidal ideation, no delusions reported or noted and denies any auditory or visual hallucinations. Attention and concentration are intact and memory appeared unreliable but none were formally tested. He is alert and oriented times three. Insight and judgment are limited. Impulse control is limited versus impaired. Vitals/I&O/Wt Last Vital Signs Temp 100.3 F H 01/05/23 14:00 Pulse 86 01/05/23 14:00 Resp 18 01/05/23 14:00 BP 111/69 01/05/23 14:00 Pulse Ox 91 01/05/23 14:00 O2 Del Method 01/04/23 06:00 Weight last 48 hrs Weight 90.356 kg Data NPU 01/03/23 16:00 01/03/23 16:00 A&P Assessment and plan (1) Major depressive disorder: (2) Suicidal ideation: Plan This is a 57 year old white man with a history of trauma, depression and genetic loading for mental health, addiction and lethality issues who presents reporting some blackout episode and being open to continuing his medication. 1. Continue current medications. 2. Encourage individual, group and milieu therapy 3. Continue q-15 minute check for safety 4. Recommend sober living treatment at the highest level of care to which the patient is willing to commit. 5. Concern for malingering. We will evaluate. Involuntary Hold Information 96 Hour Hold: 96 Hour Involuntary Admission: No Attestations NPU Medical Necessity Statement*: Inpatient hospitalization is medically necessary and the clinically appropriate intervention at this time. We will monitor medications and make changes as indicated. Likely length of stay is 1-3 days Coding Level of Care Code Acute Code for Chg Fwd Diagnoses Major depressive disorder F32.9 Suicidal ideation R45.851
[2023-01-05 20:06] VITALS: BP 108/84; PULSE 87; RESP 18; TEMP 37.3; O2SAT 94
[2023-01-05] MEDS: risperiDONE 1 mg Tablet 0.5 MG PO (21:47)
[2023-01-05] MEDS: atorvastatin 40 mg Tablet PO (21:47)
[2023-01-05] MEDS: mirtazapine 15 mg Tablet PO (21:48)
[2023-01-06 06:00] VITALS: BP 150/92; PULSE 50; RESP 16; TEMP 36.6; O2SAT 98
[2023-01-06] MEDS: nicotine 4 mg lozenge MUCOUS MEM ×4 (08:21→17:12)
[2023-01-06] MEDS: lisinopril 10 mg Tablet PO (08:21)
[2023-01-06] MEDS: docusate sodium 100 mg Capsule PO (08:21)
[2023-01-06] MEDS: amlodipine 10 mg Tablet PO (08:21)
[2023-01-06] MEDS: levothyroxine 112 mcg Tablet PO (08:21)
[2023-01-06] MEDS: buPROPion XL (24 HR) 300 mg Tablet PO (08:21)
[2023-01-06] MEDS: citalopram 20 mg Tablet 40 MG PO (08:21)
[2023-01-06 14:00] VITALS: BP 128/83; PULSE 75; RESP 18; TEMP 36.6; O2SAT 96
--- NOTE | 2023-01-06 16:38 | P.NPUPN_ITS ---
Subjective NPU Subjective: Patient presented today reporting that he was doing fine. He denies having any episodes with feeling anything like his situation at [address]. We discussed the possibilities and he endorsed feeling like there was no reason for him to stay much longer given that there has been no repeat episode. We discussed respites alternatives continue medications as prescribed with a plan for discharge tomorrow and he understood and agreed to proceed as is documented in this note. Mental Status Exam MSE Comments: This is a well nourished, well developed, white male with hospital scrubs on with limited grooming and eye contact. No abnormal movements except for mild psychomotor agitation. More cooperative with exam in mild distress. Speech was normal rate rate and increased volume. Mood described as feeling better but bored, affect is congruent. Thought process, organized. Thought content: patient denies suicidal or homicidal ideation, no delusions reported or noted and denies any auditory or visual hallucinations. Attention and concentration are intact and memory appeared unreliable but none were formally tested. He is alert and oriented times three. Insight and judgment are limited. Impulse control is limited. Vitals/I&O/Wt Last Vital Signs Temp 97.9 F 01/06/23 06:00 Pulse 50 L 01/06/23 06:00 Resp 16 01/06/23 06:00 BP 150/92 01/06/23 06:00 Pulse Ox 98 01/06/23 06:00 O2 Del Method 01/04/23 06:00 Weight last 48 hrs Weight 90.356 kg Data NPU 01/03/23 16:00 01/03/23 16:00 A&P Assessment and plan (1) Major depressive disorder: (2) Suicidal ideation: (3) Malingering: Plan This is a 57 year old white man with a history of trauma, depression and genetic loading for mental health, addiction and lethality issues who presents reporting some blackout episode and being open to continuing his medication. 1. Continue current medications. 2. Encourage individual, group and milieu therapy 3. Continue q-15 minute check for safety 4. Recommend sober living treatment at the highest level of care to which the patient is willing to commit. 5. High likelihood of malingering. Involuntary Hold Information 96 Hour Hold: 96 Hour Involuntary Admission: No Attestations NPU Medical Necessity Statement*: Inpatient hospitalization is medically necessary and the clinically appropriate intervention at this time. We will monitor medic ations and make changes as indicated. Likely length of stay is 1-2 days. Tentative plan for discharge tomorrow. Coding Level of Care Code Acute Code for g Fwd Diagnoses Major depressive disorder F32.9 Suicidal ideation R45.851 Malingering Z76.5
[2023-01-06 20:14] VITALS: BP 126/83; PULSE 87; RESP 22; TEMP 36.7; O2SAT 95
[2023-01-06] MEDS: risperiDONE 1 mg Tablet 0.5 MG PO (20:14)
[2023-01-06] MEDS: mirtazapine 15 mg Tablet PO (20:14)
[2023-01-06] MEDS: atorvastatin 40 mg Tablet PO (20:14)
[2023-01-07 06:00] VITALS: BP 146/88; PULSE 61; RESP 18; TEMP 36.7; O2SAT 97
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
[2023-01-07 08:51] VITALS: BP 146/88; PULSE 61; RESP 18; TEMP 36.7; O2SAT 97
[2023-01-07] MEDS: amlodipine 10 mg Tablet PO (09:02)
[2023-01-07] MEDS: citalopram 20 mg Tablet 40 MG PO (09:02)
[2023-01-07] MEDS: lisinopril 10 mg Tablet PO (09:03)
[2023-01-07] MEDS: buPROPion XL (24 HR) 300 mg Tablet PO (09:03)
[2023-01-07] MEDS: levothyroxine 112 mcg Tablet PO (09:03)
== END 2023-01-07 11:45 | disposition home or self-care (01) | DRG 881 ==
LOC: ER 20:09 → NP 20:20
PROVIDERS: Admitting Provider Psychiatry & Neurology Psychiatry; Emergency Provider Emergency Medicine; PCP Family Medicine; Visit Provider Psychiatry & Neurology Psychiatry
DX: F32.9 Major depressive disorder, single episode, unspecified (principal); F19.10 Other psychoactive substance abuse, uncomplicated; Z88.0 Allergy status to penicillin; Z86.12 Personal history of poliomyelitis; M51.17 Intervertebral disc disorders with radiculopathy, lumbosacral region; F17.200 Nicotine dependence, unspecified, uncomplicated; Z76.5 Malingerer [conscious simulation]
CPT/HCPCS: 36415; 70450; 80053; 80306; 80307; 84443; 85025; 93005; 97150; 97165; 99238; 99285

== ENCOUNTER 2023-01-21 11:53 | Outpatient (CLI) | payer MEDICAID, SELFPAY ==
--- NOTE | 2023-01-21 | CT_ITS ---
WS: [id number] CT RIGHT HIP NONCONTRAST TECHNIQUE: Noncontrast CT of the RIGHT hip to include the RIGHT knee. CLINICAL INFORMATION: PRE-OP COMPARISON: None. DLP: [address] scans at [facility] use at least one of these dose optimization techniques: automated e xposure control; mA and/or kV adjustment per patient size (includes targeted exams where dose is matc hed to clinical indication); or iterative reconstruction. FINDINGS: Advanced osteoarthritis RIGHT hip with complete loss of the joint space and [id number] articulation . Subchondral cystic change with bony sclerosis. Hypertrophic changes along the femoral neck and acet abulum. Degenerative arthritis sacroiliac joints. Moderate degenerative narrowing LEFT hip. Incidental fat-co ntaining inguinal hernias. Prominent prostate measuring 4.6 CM. Recommend correlation PSA. 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 Tiny fat-containing umbilical hernia. CT/CT hip RT SHANON IMPRESSION: Images obtained for preoperative purposes.
== END 2023-01-21 11:54 | disposition home or self-care (01) ==
LOC: RAD 11:54
PROVIDERS: PCP Family Medicine; Visit Provider Family Medicine
DX: Z01.818 Encounter for other preprocedural examination (principal); M16.11 Unilateral primary osteoarthritis, right hip; M46.1 Sacroiliitis, not elsewhere classified; K40.90 Unilateral inguinal hernia, without obstruction or gangrene, not specified as recurrent; K42.9 Umbilical hernia without obstruction or gangrene; I72.3 Aneurysm of iliac artery
CPT/HCPCS: 73700

== ENCOUNTER 2023-01-29 16:19 | Observation (INO) | payer MEDICAID, SELFPAY ==
[2023-01-21 13:27] VITALS: BMI 28.7
[2023-01-21 13:56] LABS: Basophils % 0.4 %; Eosinophils # 0.1 10^3/uL (0.0-0.8); Eosinophils % 1.5 %; Hematocrit 45.1 % (42.0-52.0); Hemoglobin 14.7 g/dL (11.7-16.6); Lymphocytes # 2.1 10^3/uL (0.8-4.8); Lymphocytes % 30.6 %; Mean Corpuscular HGB Conc 32.6 g/dL (30.0-36.0); Mean Corpuscular Hemoglobin 28.9 pg (28.0-34.0); Mean Corpuscular Volume 88.8 fl (80-94); Mean Platelet Volume 10.4 fL (7.4-10.4); Monocytes # 0.5 10^3/uL (0.2-0.9); Monocytes % 7.9 %; Neutrophils # 3.96 10^3/uL (1.8-7.7); Neutrophils % 59.3 %; Nucleated Red Blood Cells % 0 %; Platelet Count 253 10^3/cmm (130-400); Red Blood Count 5.08 10^6/uL (4.1-5.3); White Blood Count 6.7 10^3/uL (4.0-10.0)
[2023-01-21 14:07] LABS: Add Urine Microscopic? NO; Charge for UA Resulting for Rev
[2023-01-21 14:16] LABS: Bilirubin Urine Neg (Negative); Blood Urine Neg (Negative); Glucose Urine UA Norm (Normal); Ketones Urine 1+ (Negative); Leukocyte Esterase Urine Negative (Negative); Nitrate Urine Negative (Negative); Protein Urine Neg (Negative); Urine Appearance Clear (CLEAR); Urine Color Yellow (Yellow); Urobilinogen Urine Neg (Negative); pH Urine 5 (5-7)
[2023-01-21 14:19] LABS: Alanine Aminotransferase 13 U/L (0-41); Albumin Level 4.1 g/dL (3.5-5.2); Alkaline Phosphatase 97 U/L (40-130); Anion Gap 14.2 (5-19); Aspartate Amino Transferase 13 U/L (0-40); Blood Urea Nitrogen 21 mg/dL (6-20); Calcium 9.8 mg/dL (8.5-10.5); Carbon Dioxide 28 mmol/L (22-29); Chloride 105 mmol/L (98-107); Globulin 2.8 g/dL (1.3-4.6); Glomerular Filtration Rate 68.8 mL/min (90-130); Glucose 84 mg/dL (65-115); Osmolality Calculated 298 mOsm/kg (285-295); Potassium 4.2 mmol/L (3.5-5.1); Sodium 143 mmol/L (136-145); Total Bilirubin 0.2 mg/dL (0.15-1.2); Total Protein 6.9 g/dL (6.6-8.7)
--- NOTE | 2023-01-21 15:32 | ANES.PREANE2 ---
Pre-Anesthetic Assessment Height/Weight: Height 1.78 m Weight 90.718 kg Operation Date: 01/29/23 11:00 Proposed Procedures p Right hip total SHANON arthroplasty 91782 ,M16.11.(Right) - DO Stef Ward anesthetic complications: none Was Beta Gunjan taken within 24 hours: N/A Was Clonidine taken within 24 hours: N/A Social Alcohol and Tobacco h/o meth, rosalee Exam alert, oriented x 3 and regular rate & rhythm Airway Submandibular: within normal limits Cervical ROM: within normal limits Mallampati: Class II Dentition: chipped Comments: Comments: Poor dentition, missing some Pulmonary Chronic Obstructive Pulmonary Disease CV/HEM Hypertension Metabolic Thyroid Disease Musc/skel Lower Back Pain and Osteoarthritis/DJD Neuropsych Anxiety, Depression and Seizure (h/o) Anesthetic Plan ASA status: 3 Anesthesia: Regional (specify below) (SAB) Medications/Allergies Home Medications Medication Instructions Recorded Confirmed Last Taken Type amlodipine 10 mg tablet 10 mg PO DAILY 11/04/22 01/21/23 01/20/23 History atorvastatin 40 mg tablet 40 mg PO BEDTIME 11/04/22 01/21/23 01/20/23 History docusate sodium 100 mg tablet 100 mg PO BID 11/04/22 01/21/23 01/21/23 History levothyroxine 112 mcg tablet 112 mcg PO DAILY 11/04/22 01/21/23 01/21/23 History lisinopril 10 mg tablet 10 mg PO DAILY 11/04/22 01/21/23 01/21/23 History bupropion HCl 300 mg 24 hr tablet, 300 mg PO DAILY 30 days #30 tabs 11/22/22 01/21/23 01/21/23 Rx extended release citalopram 40 mg tablet 40 mg PO DAILY #30 tabs 11/22/22 01/21/23 01/21/23 Rx risperidone 0.5 mg tablet 0.5 mg PO BEDTIME 30 days #30 tabs 11/22/22 01/21/23 01/20/23 Rx mirtazapine 15 mg tablet 15 mg PO BEDTIME 01/03/23 01/21/23 01/20/23 History Allergies Allergy/AdvReac Type Severity Reaction Status Date / Time Penicillins Allergy Severe Verified 12/16/22 14:42 [facility] Anesthesia Medical History Avascular necrosis of femur head, right Depression Depression Psychiatric care Social History Smoking and tobacco status: current every day smoker Data Anesthesia 01/21/23 13:45 01/21/23 13:45 Short CBC 01/21/23 Range/Units 13:45 WBC 6.7 (4.0-10.0) 10^3/uL Hgb 14.7 (11.7-16.6) g/dL Hct 45.1 (42.0-52.0) % MCV 88.8 (80-94) fl Plt Count 253 (130-400) 10^3/cmm Neut % (Auto) 59.3 % Neut # (Auto) 3.96 (1.8-7.7) 10^3/uL BMP 01/21/23 13:45 Sodium 143 Potassium 4.2 Chloride 105 Carbon Dioxide 28 BUN 21 H Creatinine 1.1 Glucose 84 Calcium 9.8 Liver Function 01/21/23 Range/Units 13:45 Total Bilirubin 0.2 (0.15-1.2) mg/dL AST 13 (0-40) U/L ALT 13 (0-41) U/L Alkaline Phosphatase 97 (40-130) U/L Albumin 4.1 (3.5-5.2) g/dL Urine 01/21/23 Range/Units 13:55 Urine Color Yellow (Yellow) Urine Appearance Clear (CLEAR) Urine pH 5 (5-7) Ur Specific Eck[place] 1.030 (1.005-1.030) Urine Protein Neg (Negative) Urine Glucose (UA) Norm (Normal) Urine Ketones 1+ H (Negative) Urine Nitrate Negative (Negative) Urine Bilirubin Neg (Negative) Ur Leukocyte Esterase Negative (Negative) Cardiac Studies: No Data to Display
[2023-01-25 05:05] LABS: Cotinine, Urine <2 ng/mL; Nicotine, Urine <2 ng/mL
[2023-01-29] VITALS (22 sets, daily range): BP systolic 83–176; BP diastolic 53–100; PULSE 46–71; RESP 11–54; TEMP 36.1–36.8; O2SAT 91–100
--- NOTE | 2023-01-29 07:30 | XR_ITS ---
WS: [id number] EXAMINATION: XR chest 1V portable [id number] REASON FOR EXAM: Preoperative clearance COMPARISON: None available. ORDER DATE: 01/29/2023 7:32 AM TECHNIQUE: A single, portable frontal chest x-ray was obtained. X-RAY FINDINGS: There is bilateral basal atelectasis, greater on the right. There are decreased lung volumes bilatera lly with diaphragm elevation Pleural spaces are clear. No pleural effusions or pneumothorax. Cardiomediastinal silhouette is normal. No evidence for pulmonary edema. Soft tissue and osseous structures are unremarkable. No tubes or lines are present. XR/XR chest 1V portable [id number] IMPRESSION: Low lung volumes bilaterally with bilateral basal atelectasis
--- NOTE | 2023-01-29 07:39 | ECG_ITS ---
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 Measurements Intervals [place] Rate: 61 P: 35 AR: 158 QRS: 61 QRSD: 98 T: 73 QT: 433 QTc: 438 Interpretive Statements SINUS RHYTHM Compared to ECG 01/03/2023 15:42:52 No significant changes Electronically Signed On 01-29-2023 16:46:22 CDT by Gordon Beckhma M.D. [email or web address]
[2023-01-29] MEDS: lactated ringers 500 ML IV (07:51)
--- NOTE | 2023-01-29 07:54 | P.ANESUD_ITS ---
Pre-Anesthetic Update Pre-Anesthetic Assessment: Date of Surgery/Procedure: 01/29/23 Preop Kizzy gnosis: Right hip AVN with degenerative joint disease right hip Proposed Procedure: Operation Date: 01/29/23 08:45 Proposed Procedures p Right hip total SHANON arthroplasty 01093 ,M16.11.(Right) - Da [place], DO Any changes to Pre-Anesthetic Assessment?: No Last Intake: Intake Last Liquid Date 01/28/23 Last Liquid Time 20:00 Last Solid Date 01/28/23 Last Solid Time 18:00 Vitals: Temperature 98.3 F 01/29/23 07:34 Temperature Source Temporal Artery S can 01/29/23 07:34 Pulse Rate 65 01/29/23 07:34 Respiratory Rate 16 01/29/23 07:34 Blood Pressure 176/100 01/29/23 07:34 Blood Pressure Rosanne n 125 01/29/23 07:34 Pulse Oximetry 95 01/29/23 07:34 Oxygen Delivery Me thod 01/29/23 07:34 Exam: Pre-Anes Outpt Exam: alert, oriented x 3, clear to auscultation bilaterally and regular rate & rhythm Cardiac Studies: No Data to Display
[2023-01-29] MEDS: acetaminophen 1,000 MG/100 ML PIGGYBACK 400 MG IV (07:55)
[2023-01-29] MEDS: ketorolac 30 mg/mL INJ IVP (07:55)
[2023-01-29] MEDS: sodium chloride 0.9% 1,000 ML 30 ML IV ×2 (08:33→09:40)
--- NOTE | 2023-01-29 08:41 | W.PM.OPSUD ---
Surgery/Procedure H&P Update DATE OF PROCEDURE: January 29, 2023 DATE H&P PERFORMED: 12/16/22 PREOP DIAGNOSIS: Right hip AVN with degenerative joint disease right hip PLANNED PROCEDURE: Operation Date: 01/29/23 08:45 Proposed Procedures p Right hip total SHANON arthroplasty 10931 ,M16.11.(Right) - Da Oliveira DO
--- NOTE | 2023-01-29 08:42 | P.HP_ITS ---
Providers/Chief Complaint Admitting Physician: Da Oliveira DO Primary Care Provider: Sana Villafana DO Chief Complaint: M16.11 History of Present Illness Ac Cazares is a 58 year old male with AVN of the femoral head as well as severe degenerative joint disease with zcpe-ab-[id number] articulation of the right hip. He is seen and worked up in the outpatient setting at this point time given his hsdl-ig-rrds articulation this is debilitating his daily life I did offer a cortisone injection which at this point time he denies and would rather just have this fixed. Reviewing his history he does have psych history but at this point time is completely understandable of his condition and would like to have something done to address this so he can ambulate without pain in his right hip. He does have past history of drug abuse. States he has been trying to quit smoking, and he does verbalize understanding that smoking can increase his risks of complication with his surgery but at this point time he is willing to accept those risks and proceed with surgical intervention. He presents today for right total hip arthroplasty. Consent was reviewed and signed with patient. He will be admitted postoperatively and will likely require greater than 2 midnight stay for pain control therapy as well as likely rehab facility placement. Denies any fevers chills chest pain or shortness of breath Review of Systems General: Reports: 10 or more systems reviewed and unremarkable except in HPI and below Medications/Allergies Home Medications Medication Instructions Recorded Confirmed Last Taken Type amlodipine 10 mg tablet 10 mg PO DAILY 11/04/22 01/29/23 01/27/23 History atorvastatin 40 mg tablet 40 mg PO BEDTIME 11/04/22 01/29/23 01/27/23 History docusate sodium 100 mg tablet 100 mg PO BID 11/04/22 01/29/23 01/27/23 History levothyroxine 112 mcg tablet 112 mcg PO DAILY 11/04/22 01/29/23 01/27/23 History lisinopril 10 mg tablet 10 mg PO DAILY 11/04/22 01/29/23 01/27/23 History Allergies Allergy/AdvReac Type Severity Reaction Status Date / Time Penicillins Allergy Severe Verified 01/22/23 15:02 PFSH Acute PFSH: Medical History Avascular necrosis of femur head, right Depression Depression Psychiatric care Social History Smoking and tobacco status: current every day smoker Vitals/I&O/Wt Last Vital Signs Temp 98.3 F 01/29/23 07:34 Pulse 65 01/29/23 07:34 Resp 16 01/29/23 07:34 BP 176/100 01/29/23 07:34 Pulse Ox 95 01/29/23 07:34 O2 Del Method 01/29/23 07:34 01/28/23 01/29/23 01/29/23 22:59 06:59 14:59 Intake Total 600 / 600 Balance 600 / 600 Physical Exam Narrative: Examination right hip: Examination of the lumbar spine shows full range of motion without discomfort.? There is minimal tenderness about the lumbar spine and paraspinal muscles.? Exam of the lower extremities reveals no gross deformities.? The range of motion of both the knees and ankles are normal.? There are no deformities of the knees or ankles detected.? Straight leg raising test is negative and reproduces no back pain. The right hip shows decreased range of motion when compared to the opposite side.? Severely limited hip flexion and internal rotation compared to co ntralateral hip.? There is pain at the ends of internal and external rotation.? This reproduces pain near the groin.? There is no tenderness around the greater trochanter.? Gait is antalgic favoring the right side.? Overall reasonably healthy body habitus with minimal pannus noted of the abdomen. Const: COMMON NORMALS: no acute distress and average body habitus HENMT: COMMON NORMALS: normocephalic Resp: COMMON NORMALS: normal respiratory effort and No retractions Data 01/21/23 13:45 01/21/23 13:45 Xray Ortho: My impression: X-rays 3 views in the office the right hip reviewed and personally interpreted by myself demonstrating severe right hip degenerative joint disease mprp-ts-esdl arthritis with beginnings of superior migration of the femoral head.? AVN changes consistent with flattening of the femoral head. A&P Assessment and plan (1) Avascular necrosis of femur head, right: (2) Degenerative joint disease of right hip: Plan Patient underwent preoperative lab testing and clearance. I did obtain a urine culture seen and nicotine which was normal. Once again reiterated importance of smoking cessation and he does understand the risks of smoking as pertaining to increasing complications. We will obtain a urine tox screen day of surgery just given his past drug abuse history as this is an elective case and to make sure that he is as optimized and not under any acute intoxication. Today he is of normal affect understands the risk benefits complication alternatives to a right total hip arthroplasty. He understands risks which include but not limited to make a better make it worse, blood clot, heart attack, stroke, on the table, periprosthetic fracture, injury to nerves or vessels, blood loss, infection, wound complications.. He is obtain a preoperative CT scan for preoperative planning utilizing robotic assistance. Patient understands and agrees with current plan. All questions answered. We will proceed with a right total hip arthroplasty Cristino robotic assisted we will plan for an anterior approach as patient's body habitus is amendable. Patient understands and agrees with current plan. All questions answered. Patient does admit to marijuana use and that is tested positive in the past remote methamphetamines history. We will follow-up on urine tox screen prior to taken back for surgery. Attestations Medical Necessity Statement*: Ongoing care right hip AVN with development of DJD of the right hip. Plan for right total hip arthroplasty Coding Level of Care Code Acute Code for Chg Fwd Diagnoses Avascular necrosis of femur head, right M87.051 Degenerative joint disease of right hip M16.11 Time Spent (min) 35
--- NOTE | 2023-01-29 09:02 | SUR.PREOP ---
08:30 PT INFORMED BY DOCTOR HULL FOR THE NEED FOR A URINE SPECIMEN PRIOR TO SURGERY. 08:30 PT ENCOURAGED TO PROVIDE URINE.
--- NOTE | 2023-01-29 09:14 | SUR.PREOP ---
09:00 PT REFUSED STRAIGHT CATH TO OBTAIN URINE.
[2023-01-29 10:23] LABS: Amphetamines Screen Urine Negative (Negative); Barbiturates Screen Urine Negative (Negative); Benzodiazepines Screen Urine Negative (Negative); Cocaine Screen Urine Negative (Negative); Opiate Screen Urine Negative (Negative); PCP Screen Urine Negative (Negative); THC Screen Urine Positive (Negative)
[2023-01-29] MEDS: clindamycin 600 MG/50 ML PREMIX 100 MG IV (10:31)
[2023-01-29] MEDS: vancomycin 1,500 MG/300 ML PIGGYBACK 200 MG IV (11:15)
[2023-01-29] MEDS: tranexamic acid 1,000 mg/10mL SDV 1000 MG IV (11:20)
[2023-01-29] MEDS: vancomycin 1,000 MG SDV 1000 MG XX (13:49)
--- NOTE | 2023-01-29 14:57 | XR_ITS ---
WS: [id number] EXAMINATION: XR hip RT 2-3V wo/w pel* [id number] REASON FOR EXAM: postop JULIANE COMPARISON: None available. ORDER DATE: 01/29/2023 2:57 PM FINDINGS: There is satisfactory alignment of the prostheses at the right hip joint. There is no sign of peripro sthetic osseous abnormality or hardware failure. Soft tissues are unremarkable. XR/XR hip RT 2-3V wo/w pel* [id number] IMPRESSION: Stable appearance of the total right hip arthroplasty.
--- NOTE | 2023-01-29 15:07 | P.OP_ITS ---
Operative Report Date of procedure: January 29, 2023 Pre-op diagnosis: Preop Diagnosis Right hip AVN with degenerative joint disease right hip Post-op diagnosis: Same Procedure done: Right total hip arthroplasty?Cristino robotic assisted?anterior approach Implants: Reeves Trident acetabular shell size 58 mm Tremayne acetabular screw 30 mm Tremayne acetabular screw 20 mm (placed in, subsequently removed as sat too proud with no purchase, enabling liner placement) Accolade II 132 degree size 7 femur stem Trident 0 degree polyethylene 36 degree inner diameter 36 mm femoral head ceramic +0 mm Surgeon: Da Oliveira DO Anesthesia: Other (Spinal) Estimated blood loss: 600 mL IV fluids: 1800 mL Complications: None Findings: See operative report narrative Condition: stable Disposition: floor Brief History: Patient is a 58-year-old male presented to my outpatient office setting findings consistent with wjtx-zh-axar arthritis secondary to femoral head AVN and advanced degenerative joint disease of the right hip. We talked about treatment options as far as nonoperative and operative intervention. At this point time he is qnta-qv-hmxk arthritis we did offer a corticosteroid injection at this point time given his vufj-po-kbau articulation he would like to avoid placing a corticosteroid injection at this point time would like a permanent fix. States he would like to be out of pain as he has severe pain with hip range of motion that severely limited. We talked about treatment options at this point time he understands the risk benefits complication alternatives surgical nonsurgical treatment options. He understands his risk of surgery and agrees to proceed. He is underwent a preoperative evaluation with our anesthesia department as well as obtained a urine for nicotine and cotinine as patient does have a history of smoking but states has been trying to quit. He has a previous drug abuse history of methamphetamines this has been remote. He did have a recent hospitalization by the psychiatric department. At this point time on presentation to the preoperative holding area he understood and was agreeable to proceed with a right total hip arthroplasty consent was reviewed and signed with patient. We obtained a urine tox screen to make sure no acute intoxication at this point in time patient understanding his risk of surgery agrees to proceed with surgical intervention. All questions answered. Patient will be admitted postoperatively plan would be for rehab facility placement as patient is essentially homeless and lives in a shed in a friend's property. He does have a sister who we have contact with. Procedure: Patient was seen evaluated in the preoperative holding area. Consent was reviewed and signed with patient. Urine tox screen performed and patient seen evaluate by anesthesia and cleared to proceed with surgical intervention. All questions were answered at this time. Once cleared by anesthesia used to brought back to the operative suite he then underwent anesthesia per the anesthesia department of a spinal anesthetic. The patient was administered tranexamic acid and preop antibiotics, and placed in the supine position. All bony prominences were properly padded, securely fixed to the table, and administered?general?anesthetic. The patient was subsequently transferred from the hospital bed to the [place] table. Bilateral lower extremities were placed in the traction boots. The pelvis was well approxi mated against the perineal post.? Final timeout performed.? Patient received appropriate preoperative antibiotics. Both hips were then prepped and draped in a normal orthopedic fashion.? Started with a small incision 2 fingerbreadths above the ASIS on the left iliac wing to place pelvic arrays.? Small incision was made directly down to bone.? 3 pelvic pins were placed with excellent fixation.? The robotic array was secured to the nonoperative iliac wing using sterile technique. The extremity was then definitively draped in standard, sterile fashion.? The array was found to be visible by the robot. A standard direct anterior supine approach was performed to the?operative hip joint. The skin was incised down to the tensor fascia nisha muscle and fascia. Fascia was split longitudinally in line with its fibers. The tensor fascia nisha muscle was retracted laterally. The appropriate retractors were placed superiorly. Lateral circumflex vessels were identified and appropriately ligated. The hip capsule was then identified.? Appropriate retractors were placed superiorly and inferiorly along the capsule directly onto bone.? That was split longitudinally up to the acetabular rim in line with the femoral neck. The femoral capsule was found to be significantly hypertrophic, thickened, and significantly fibrotic. The capsule was then elevated both superiorly and inf eriorly down to the lesser trochanter as well as up towards the greater trochanter.? Tag stitches were applied with 0 Vicryl into the capsule.? Femoral check point was?then inserted and confirmed on the lateral trochanter proximal femur. .? A distal marker?was placed into the distal femur for measurement of leg lengths. Preoperative leg lengths were registered and confirmed at this point. Next the appropriate-sized neck cut was then performed after being measured with robotic assistance. Femoral head was removed atraumatically this was known to have significant AVN and deformity with significant osteophyte formation. Femoral head was found to be flat, eburnated bone with complete collapse of the superior portion and significant deformity. Acetabulum was also inspected and was found to have peripheral osteophytes as well as no evidence of cartilage consistent with clqb-ht-enwu arthritis. Appropriate retractors were then placed in the anterior and posterior wall. The remaining labrum was then excised from the periphery of the acetabular rim. At this point registration for the Cristino was performed on the acetabular side and confirmed. Once confirmed, any osteophytes able to be were removed. We planned 40 degrees of lateral opening and 20 degrees of anteversion. At this point, we reamed and medialized to the inner wall of the acetabulum with a size?50?reamer for a definitive ream using robotic arm assistance.?The acetabulum was found to have good bleeding bone throughout. Once medialized we then switched our reamer to a size 58 reamer which was her preplanned cup size t his was then locked into the appropriate version and abduction and we reamed a line to line. Reamer removed excellent bleeding bone circumferentially with sufficient anterior and posterior wall. ?The definitive acetabular cup 58 mm was inserted and impacted under?Cristino guidance with the appropriate amount of anteversion and lateral opening. It was then secured with 1x 6.5 mm cancellous screws in appropriate safe zone position. I did attempt to place an additional 20 mm screw this did not sit flush and had minimal purchase as result decision was made to remove this as he had excellent press-fit fixation and an excellent additional screw with the cup the screw was determined to be unnecessary and would impede on my liner placement. Next a 36-mm X3 neutral liner was impacted into the?acetabular shell and secured. Hip was then irrigated with copious amounts of irrigation. At this point, the remaining femoral releases were then performed allowing the adequate mobilization of the?right?femur. Traction was confirmed to being off to the right lower extremity and the femur was then externally rotated, extended, and adducted giving adequate exposure of the proximal femur in the surgical wound. Box cut was then used to enter the intramedullary canal of the?femur. Canal finder was placed down the canal of the?operative femur. Appropriate-sized broaches from a size 0 up to a size 7 were impacted down the operative femoral canal with the appropriate amount of anteversion.? A?+0 mm neck was found to be most appropriate for a soft tissue tensioning offset and the leg lengths that was confirmed with Cristino. ?Stability was then assessed and excellent stability with patient external rotation of greater than 90 degrees and traction with no evidence of hip instability. Appropriate tension noted of the soft tissues. At this point, the hip was relocated.?Cristino guidance was again used to confirm appropriate leg lengths. Operative hip was then re-dislocated using a bone hook. All trials were then removed from the?operative femur. Adequate exposure was then once again obtained. The trials were removed. The definitive Accolade II stem size 7 was impacted down the?right?femoral canal with the appropriate amount of anteversion. The appropriate sized head 36 mm ceramic +0 mm was impacted onto the trunnion, and the?operative?hip was then relocated with traction and internal rotation. Final measurements were obtained on Cristino confirming leg lengths and offset. Once again hip stability was assessed and found to have excellent stability and appropriate soft tissue tensioning. Hip was irrigated with copious amounts of irrigation.? Vancomycin powder was placed within the wound bed for added infection prophylaxis.? The superior and inferior leaflets of the capsule were then closed with Ethibond suture. Vicryl tag stitches were removed. The superficial layer of the tensor fascia nisha fascia was closed using 0 stratafix suture in a running fashion.? Subcutaneous tissues were closed with running 3-0 Stratafix, skin was closed with 4-0 monocryl.?Surgical Prineo glue and steri strips were?applied and covered with a Silverlon dressing to the operative side.?The incision on the non-operative side for the robotic array was irrigated and closed with layered fashion of 0 Vicryl, 2-0 Vicryl and running Monocryl suture and surgical glue. ?The patient was subsequently awoken per Anesthesia and transferred to PACU in satisfactory condition. ?Leg lengths and rotational profile were found to be appropriate. ? DISPOSITION: The patient will be admitted to the hospital for initiation of DVT prophylaxis, physical therapy, pain control. The patient is to weight bear as tolerated. Anterior hip precautions, postoperative antibiotics,?postoperative TXA and aspirin?for DVT prophylaxis. Patient will receive appropriate discharge instructions as well as pain medication postoperatively and will follow up in my office in 2 weeks.? Patient with work with PT/OT. Internal medicine will be consulted for medical management and assistance with patient's psychiatric history.
--- NOTE | 2023-01-29 15:07 | PM.OP2 ---
Brief Operative Note Date of procedure: 01/29/23 Pre-op diagnosis: Right hip AVN, right hip degenerative joint disease Post-op diagnosis: same Procedure Done: Right total hip arthroplasty?Cristino robotic assisted, anterior approach Surgeon: Da Oliveira Estimated blood loss (mL): 600 Complications: None Post-op Plan: Patient taken to PACU in stable condition. Patient recovering well. Patient will be admitted to the floor postoperatively. He is an anterior approach with anterior hip precautions. Dressings on in place clean dry and intact. We will have internal medicine on board for medical management and assistance. He will be weightbearing as tolerated to the right lower extremity. PT/OT. TXA postoperatively postoperative antibiotics, postoperative DVT prophylaxis with aspirin 325 twice daily starting tomorrow. Orthopedics will continue to follow on the floor. Condition: stable Disposition: floor Coding Level of Care Code Acute Code for Khoi Khan
--- NOTE | 2023-01-29 15:07 | PM.PACU ---
PACU note Narrative: Patient taken to PACU in stable condition. Patient still lethargic and sleepy from sedation unarousable for fall motor and sensory examination. Distal pulses are palpable right lower extremity is warm well perfused. Exam: somnolent, arousable Disposition: admitted
--- NOTE | 2023-01-29 16:22 | PC.NURSE ---
Patient arrived hypotensive. Treated by CUSTODIAN MANAGER with albumin. Pressures improved. Patient awoke non compliant. Using vulgar language. Refusing to comply with hip precautions. Refusing to allow hip nerve block.
--- NOTE | 2023-01-29 16:24 | ANE.PACU2 ---
Inpatient post-anesthesia follow up: Airway intact: Yes Vital signs: Temperature 97 F Pulse Rate 60 Respiratory Rate 15 Blood Pressure 135/87 Pulse Oximetry 91 Oxygen Delivery Me thod Room Air Oxygen Flow Rate 8 Fraction of Inspir ed Oxygen Hydration adequate: Yes Nausea and vomiting: No Pain level: 1 Mental status: Baseline Additional Comments: Patient not cooperative, unable to perform block
[2023-01-29] MEDS: HYDROmorphone 1 mg/mL INJ 1 mL 0.5 MG IVP (16:36)
[2023-01-29] MEDS: acetaminophen 500 mg Tablet 1000 MG PO (16:52)
[2023-01-29] MEDS: iron polysaccharide complex 150 mg Capsule PO (16:53)
[2023-01-29] MEDS: calcium carbonate 500 mg Chew Tablet 1000 MG PO (16:53)
[2023-01-29] MEDS: aspirin 325 mg EC Tablet PO (16:53)
[2023-01-29] MEDS: sennosides-docusate Tablet 2 TAB PO (16:53)
[2023-01-29] MEDS: ketorolac 30 mg/mL INJ 15 MG IVP (18:13)
--- NOTE | 2023-01-29 18:32 | PM.MISC ---
Miscellaneous Note Purpose of Documentation: Orthopedic note update postoperatively: During surgery I was contacted multiple times by nursing staff on the floor stating patient was wanting to leave AMA told them to hold off is much as possible. Patient had put on clothes and ambulated outdoors and smoked a cigarette. He is now returned back to his room and is more reasonable. His sister is at bedside and appreciative of our care. He does have a psych history and as a result I have contacted hospitalist to have them on board for medical management and assistance if he has any types of withdrawals or need of assistance for any agitation overnight pertaining to medications to have available. Once again reiterated on him of his hip precautions. Also reiterated importance of him staying at the hospital as I do worry he will even have issues with pain and worry about compliance postoperatively. Patient is agreeable to this at this time. He is able to perform hip flexion test without issues and good strength dressings are clean dry and intact at this time. Sensation intact to light touch distally. Patient has appropriate pain medications on board and appreciate internal medicine with assistance with medical management. Patient currently is homeless and lives in somebody's shed on their property according to patient's sister. Would likely recommend skilled rehab facility placement if possible as I think this would be a safe place for patient to recover as well as therapy. Orthopedics will continue to follow. Da Oliveira, DO Orthopedic surgery
[2023-01-29] MEDS: oxyCODONE 5 mg IR Tab/Cap PO (19:03)
--- NOTE | 2023-01-29 19:15 | PM.MISC ---
Miscellaneous Note Purpose of Documentation: Orthopedic note update: Had received a call from nursing staff and appropriate increase in pain medication for oral pain medication was increased and updated. Patient was refusing p.o. pain medications and states he just wants Demerol . Verbally spoke with patient over the phone and recommended he trial p.o. pain medications as he had already received IV Dilaudid. Patient was agreeable to this over the phone and the nurse had administered oral pain medication. I was then contacted by the nursing staff on the floor at 7:15 PM that patient got agitated and left AMA. Unfortunately unable to discuss with patient discharge instructions as well as pain medication pain medications have appropriately been sent to his pharmacy on file if he needs these. We will continue to try and reach out the patient as well as sister on patient's whereabouts and try to establish postoperative follow-up. Da Oliveira, /orthopedic surgery
--- NOTE | 2023-01-29 19:26 | PC.NURSE ---
Pt belligerent and yelling at hospital staff and his sister that is at bedside. One on one redirection attempted, unsuccessful. Pt remained belligerent and violent. Pt stated he was leaving, Have a good fucking life , among various other muttered profanities. Pt would not allow staff help him get dressed, or remove his IV. Pt yanked his iv out. Pt dressed himself and began to ambulate in the hallway, seeking the exit. Staff attempted to assist pt to exit, but again became belligerent and yelling at staff. Security present on floor, and escorting pt out of the facility, as to keep harm from coming to other visitors or pts. Dr. Oliveira notified of pt leaving AMA.
--- NOTE | 2023-01-29 19:30 | PM.DCS ---
Discharge Providers Date of Admission: 01/29/23 16:19 Date of Discharge: January 29, 2023 (Patient left AMA) Attending Provider at Admission: Da Oliveiar DO Attending Provider at Discharge: Da Oliveira DO Consults: Internal medicine consulted Primary Care Provider: Sana Villafana DO Diagnoses at Discharge Discharge Diagnosis (1) Avascular necrosis of femur head, right: Status: Acute (2) Degenerative joint disease of right hip: Status: Acute Reason for Visit Reason for Visit: M16.11 Brief History: Right hip AVN with advanced degenerative joint disease of the right hip Hospital Course Hospital Course Patient presented to the preoperative holding area with plan for right total hip arthroplasty. He does have a psychiatric history. He has AVN femoral head and advanced degenerative joint disease [id number] arthritis of the right hip he underwent preoperative evaluation. Patient was cleared by anesthesia department. We did obtain a urine tox screen prior to proceeding with surgical intervention to make sure no evidence of acute meth or cocaine intoxications at this point time he is chronically taking marijuana which he admits to. This point time cleared for surgery and he subsequently was taken back to the operative suite underwent a spinal anesthesia and proceeded with a right total hip arthroplasty Cristino robotic assisted through an anterior approach. Procedure occurred without any complications. Patient was then taken to PACU in stable condition. He unfortunately when recovering was very agitated. He was subsequently admitted to the floor postoperatively. Appropriate pain medication DVT prophylaxis, TXA was ordered. Patient to be weightbearing as tolerated with anterior hip precautions. PT/OT ordered. Internal medicine was consulted and brought on board for assistance given patient does have a remote psychiatric history and chronic medical conditions being treated for. In the acute postoperative period he was seen and evaluated already was threatening to leave AMA he subsequently went outside smoked a cigarette and came back in received pain medication was still regained agitation and I was subsequently called at 7:15 PM the evening after surgery postop day 0 that patient was agitated and stormed off left the hospital AMA. We will make attempts to reach out the patient as well as sister who we have contact with as well as discharge prescriptions for pain and DVT prophylaxis have been sent to patient's pharmacy on file. Physical Exam Narrative: Examination made postoperatively as patient had already changed into his jeans and shoes and had left to go outside to smoke. Patient is able to actively perform straight leg raise and 5 out of 5 hip flexion strength able to wiggle toes plantarflex and dorsiflex ankle endorses sensation intact to light touch to the right lower extremity dressings on in place is clean dry and intact. Right lower extremity warm well perfused compartments are soft and compressible Discharge Data Studies Completed and Pending Completed Studies During Hospitalization Category Date Time Status XR chest 1V portable [id number] Routine Exams 01/29/23 07:30 Completed XR hip RT 2-3V wo/w pel* [id number] Routine Exams 01/29/23 14:57 Completed Radiology Impressions Chest X-Ray 01/29/23 07:30 IMPRESSION: Low lung volumes bilaterally with bilateral basal atelectasis Hip/Pelvis X-Ray 01/29/23 14:57 IMPRESSION: Stable appearance of the total right hip arthroplasty. Laboratory Results WBC 6.7 10^3/uL (4.0-10.0) 01/21/23 13:45 RBC 5.08 10^6/uL (4.1-5.3) 01/21/23 13:45 Hgb 14.7 g/dL (11.7-16.6) 01/21/23 13:45 Hct 45.1 % (42.0-52.0) 01/21/23 13:45 MCV 88.8 fl (80-94) 01/21/23 13:45 MCH 28.9 pg (28.0-34.0) 01/21/23 13:45 MCHC 32.6 g/dL (30.0-36.0) 01/21/23 13:45 RDW 13.0 % (12.1-15.1) 01/21/23 13:45 Plt Count 253 10^3/cmm (130-400) 01/21/23 13:45 MPV 10.4 fL (7.4-10.4) 01/21/23 13:45 Neut % (Auto) 59.3 % 01/21/23 13:45 Lymph % (Auto) 30.6 % 01/21/23 13:45 [place] % (Auto) 7.9 % 01/21/23 13:45 Eos % (Auto) 1.5 % 01/21/23 13:45 Baso % (Auto) 0.4 % 01/21/23 13:45 Neut # (Auto) 3.96 10^3/uL (1.8-7.7) 01/21/23 13:45 Lymph # (Auto) 2.1 10^3/uL (0.8-4.8) 01/21/23 13:45 [place] # (Auto) 0.5 10^3/uL (0.2-0.9) 01/21/23 13:45 Eos # (Auto) 0.1 10^3/uL (0.0-0.8) 01/21/23 13:45 Baso # (Auto) 0.0 10^3/uL (0.0-0.1) 01/21/23 13:45 Nucleated RBC % (auto) 0 % 01/21/23 13:45 Nucleated RBCs # 0.0 /100WBC 01/21/23 13:45 Sodium 143 mmol/L (136-145) 01/21/23 13:45 Potassium 4.2 mmol/L (3.5-5.1) 01/21/23 13:45 Chloride 105 mmol/L (98-107) 01/21/23 13:45 Carbon Dioxide 28 mmol/L (22-29) 01/21/23 13:45 Anion Gap 14.2 (5-19) 01/21/23 13:45 BUN 21 mg/dL (6-20) H 01/21/23 13:45 Creatinine 1.1 mg/dL (0.7-1.2) 01/21/23 13:45 GFR Calculation 68.8 mL/min (90-130) L 01/21/23 13:45 Glucose 84 mg/dL (65-115) 01/21/23 13:45 Calculated Osmolality 298 mOsm/kg (285-295) H 01/21/23 13:45 Calcium 9.8 mg/dL (8.5-10.5) 01/21/23 13:45 Total Bilirubin 0.2 mg/dL (0.15-1.2) 01/21/23 13:45 AST 13 U/L (0-40) 01/21/23 13:45 ALT 13 U/L (0-41) 01/21/23 13:45 Alkaline Phosphatase 97 U/L (40-130) 01/21/23 13:45 Total Protein 6.9 g/dL (6.6-8.7) 01/21/23 13:45 Albumin 4.1 g/dL (3.5-5.2) 01/21/23 13:45 Globulin 2.8 g/dL (1.3-4.6) 01/21/23 13:45 Urine Color Yellow (Yellow) 01/21/23 13:55 Urine Appearance Clear (CLEAR) 01/21/23 13:55 Urine pH 5 (5-7) 01/21/23 13:55 Ur Specific [place] 1.030 (1.005-1.030) 01/21/23 13:55 Urine Protein Neg (Negative) 01/21/23 13:55 Urine Glucose (UA) Norm (Normal) 01/21/23 13:55 Urine Ketones 1+ (Negative) H 01/21/23 13:55 Urine Blood Neg (Negative) 01/21/23 13:55 Urine Nitrate Negative (Negative) 01/21/23 13:55 Urine Bilirubin Neg (Negative) 01/21/23 13:55 Urine Urobilinogen Neg mg/dL (Negative) 01/21/23 13:55 Ur Leukocyte Esterase Negative (Negative) 01/21/23 13:55 Urine Cotinine <2 ng/mL 01/21/23 13:55 Urine Nicotine <2 ng/mL 01/21/23 13:55 Urine Opiates Screen Negative ng/mL (Negative) 01/29/23 09:45 Ur Barbiturates Screen Negative ng/mL (Negative) 01/29/23 09:45 Ur Phencyclidine Scrn Negative ng/mL (Negative) 01/29/23 09:45 Ur Amphetamines Screen Negative ng/mL (Negative) 01/29/23 09:45 U Benzodiazepines Scrn Negative ng/mL (Negative) 01/29/23 09:45 Urine Cocaine Screen Negative ng/mL (Negative) 01/29/23 09:45 U Marijuana (THC) Screen Positive ng/mL (Negative) H 01/29/23 09:45 Blood Type B Positive 01/29/23 07:44 Rho(D) Type Positive 01/29/23 07:44 Antibody Screen Negative 01/29/23 07:44 Imaging Xray Ortho: Radiologist's impression: X-rays of the right hip demonstrate stable right total hip arthroplasty with stable prosthesis in good alignment and appropriate leg lengths no periprosthetic fracture or dislocation noted Procedures Performed Right total hip arthroplasty?Cristino robotic assisted anterior approach Vitals Last Vital Signs Temp 97 F L 01/29/23 14:43 Pulse 71 01/29/23 20:14 Resp 15 01/29/23 20:14 BP 164/94 01/29/23 16:45 Pulse Ox 93 01/29/23 20:14 O2 Del Method 01/29/23 20:14 O2 Flow Rate 2 01/29/23 20:14 Discharge Plan Discharge Patient Disposition: Left Against Medical Advice Prescriptions: New Percocet 5-325 mg tablet 2 tab PO Q6H PRN (Reason: pain) 7 Days Qty: 56 0RF aspirin 325 mg tablet 325 mg PO BID 14 Days Qty: 28 0RF calcium carbonate-vitamin D3 600 mg-10 mcg (400 unit) Tablet 1 ea PO BID 30 Days Qty: 60 0RF ondansetron 4 mg tablet,disintegrating 4 mg PO DAILY 5 Days Qty: 5 0RF docusate sodium [Colace] 100 mg capsule 100 mg PO DAILY PRN (Reason: constipation) 10 Days Qty: 10 0RF Continued lisinopril 10 mg Tablet 10 mg PO DAILY atorvastatin 40 mg Tablet 40 mg PO BEDTIME amlodipine 10 mg Tablet 10 mg PO DAILY docusate sodium 100 mg Tablet 100 mg PO BID levothyroxine 112 mcg Tablet 112 mcg PO DAILY Referrals: Da Oliveira DO [Physician] - Discharge Diet: Advance as tolerated Discharge Activity: Limit activity as instructed Patient Instructions: Opioid Safety Activity Restrictions/Additional Instructions: Orthopedic discharge instructions: Patient should maintain weightbearing as tolerated to the right lower extremity Anterior hip precautions Keep incision clean dry and intact Take pain medication as prescribed Take antinausea medication as needed Supplement with Colace for constipation Supplement with vitamin D and calcium for bone health and healing Take aspirin 325 mg twice daily for blood clot prevention postoperatively Follow-up with Dr. Oliveira in the office in 2 weeks Contact the office for any questions or concerns Discharge Attestations Time Spent in Discharge Care*: greater than 30 min Quality Metrics Clinical Quality Measures [ No reported AMI, CVA or VTE this stay (Patient left AMA)] Coding Level of Care Code Acute Code for Chg Fwd Diagnoses Avascular necrosis of femur head, right M87.051 Degenerative joint disease of right hip M16.11
--- NOTE | 2023-01-29 19:44 | W.PM.EVENTAC ---
Event Note Event Note: I received a call about consultation for Mr. Matias. I came upstairs to see him but I am told he has already left AMA.
--- NOTE | 2023-01-29 19:50 | PC.NURSE ---
patient signed AMA form, stated to Mary Kate Moreno RN you can't touch me when letting him know we need to take his iv out. Pt took own iv out, was provided gauze and tape for control of bleeding and was instructed to hold pressure. patient left floor approximately 1855, Remi from security followed patient out.
--- NOTE | 2023-01-31 17:15 | PM.MISC ---
Miscellaneous Note Purpose of Documentation: Orthopedic note: Friday01/31/2023 was contacted by the emergency department at patient subsequently returned to the emergency department after he had left AMA during his initial hospitalization. Patient apparently has been extremely agitated and not cooperative while in the emergency department. Patient apparently had had a triage nursing staff member. He was subsequently going to be brought in under the psychiatric team and I was requested to be consulted. X-rays had been performed by the emergency department of the right hip showing stable right total hip arthroplasty with no interval change in implant position and no periprosthetic fractures. Patient allegedly has been ambulating around the emergency department. I was agreeable to being consulted during patient's admission by the psychiatric team on my heading down to the emergency department patient allegedly had become not cooperative and patient's ended up not being held by the psychiatric team and patient was discharged/left prior to my consultation. Once again appropriate pain medication and DVT prophylaxis has been sent to patient's pharmacy on file. We will again continue to try and reach out the patient to establish appropriate 2-week postoperative visit. I have concerns on patient's postoperative course given his unwillingness to cooperate, him leaving the hospital AMA postoperatively, as well as a psychiatric history and apparent aggressive behavior in the emergency department which was relayed to me from the emergency department team. Da Oliveira, DO Orthopedic surgery
== END 2023-01-29 20:28 | disposition left against medical advice (07) | DRG 470 ==
LOC: MEDSURG 05-15 14:17
PROVIDERS: Anesthesiology; Admitting Provider Student in an Organized Health Care Education/Training Program; PCP Family Medicine; Visit Provider Student in an Organized Health Care Education/Training Program
PROC: 8E0Y0CZ Robotic Assisted Procedure of Lower Extremity, Open Approach (ICD-10-PCS; CPT 27130; principal; 2023-01-29 08:15)
DX: M87.051 Idiopathic aseptic necrosis of right femur (principal); M16.11 Unilateral primary osteoarthritis, right hip; F12.90 Cannabis use, unspecified, uncomplicated; R45.1 Restlessness and agitation; J44.9 Chronic obstructive pulmonary disease, unspecified; F17.210 Nicotine dependence, cigarettes, uncomplicated; E07.9 Disorder of thyroid, unspecified; I10 Essential (primary) hypertension; F19.11 Other psychoactive substance abuse, in remission; Z53.29 Procedure and treatment not carried out because of patient's decision for other reasons; Z86.59 Personal history of other mental and behavioral disorders; Z59.01 Sheltered homelessness
CPT/HCPCS: 20985; 27130; 36415; 71045; 73502; 76000; 80053; 80306; 80323; 81003; 85025; 86850; 86900; 93005; C1713; C1776; G0378; J0131; J1100; J1170; J1885; J2250; J2370; J2405; J2704; J2795; J3010; J3370; J3490; J7030; J7120; P9045; P9047

== ENCOUNTER 2023-01-31 13:16 | Emergency (ER) | payer MEDICAID, SELFPAY ==
[2023-01-31 13:39] VITALS: BP 183/98; PULSE 103; RESP 19; TEMP 36.7; O2SAT 97; BMI 28.7
--- NOTE | 2023-01-31 13:42 | PC.NURSE ---
Attempted triage, pt ran wheelchair into staff nurse Mayito Valadez, Pt then ambulated from wheelchair and left the facility. Pt was then met by security, and promptly escorted to room 9.
--- NOTE | 2023-01-31 13:50 | W.ED.PSYCHS ---
HPI - Psych General: Chief Complaint: Psychiatric Symptoms Stated Complaint: SI Time Seen by Provider: 01/31/23 13:38 Source: patient Mode of arrival: ambulatory History of Present Illness: 58-year-old male who presents to the emergency room with complaints of suicidal ideation. 2 days ago patient had a right hip arthroplasty with a anterior approach. He had avascular necrosis of the right femoral head. Patient left the hospital AMA on the day of surgery. His discharge note was reviewed. He left that evening he felt his pain was not being adequately controlled. Dr. Oliveira was contacted and him attempted to make arrangements to get the patient DVT prophylaxis as well as prescriptions for pain medication. Patient return to the emergency room earlier today but then left when he was not taken back to her room immediately. He returned a second time and this time stated that he was suicidal because of his pain. He attempted to leave when the nurse first encountered him and was performing a triage. He pushed a wheelchair into the nurse and tried to leave the building. Because of his recent surgery he could not move very quickly the nurse was able to maintain eye contact with him the entire time. Patient was only able to make it just outside the entrance door onto the sidewalk. Staff was unable to eventually convince him to return inside and he was brought to a room. When I went to see the patient he was belligerent and angry. He was swearing at staff and myself multiple times. Became very angry and threatened to hit me while we are examining his hip. See notes below on the hip exam. Patient does have a history of psychiatric illness he has been admitted in the past to neuropsychiatry at [facility]. He has not currently been taking his medications. He also has a history of alcohol marijuana and methamphetamine abuse. complaint: suicidal ideation Duration: intermittent and changing over time Relieving factors: none Exacerbating factors: none Context: not taking psychiatric medications Associated psychiatric symptoms: suicidal ideation Treatments prior to arrival: none If self harm: admits thoughts of self harm Review of Systems Const: Denies: fever(s), chills, body aches, change in appetite, fatigue or malaise Card: Denies: chest pain, edema or dyspnea on exertion Resp: Denies: dyspnea, productive cough or non-productive cough GI: Denies: abdominal pain, nausea or vomiting : Denies: dysuria, urinary frequency or urinary urgency PFSH ED PFSH: Medical History Avascular necrosis of femur head, right Depression Depression Psychiatric care Social History Smoking and tobacco status: current every day smoker Physical Exam Const: ORIENTATION/CONSCIOUSNESS: Yes awake, Yes oriented to person, Yes oriented to place and Yes oriented to time HENMT: COMMON NORMALS: normocephalic, atraumatic and hearing grossly normal bilaterally HEAD & SCALP: normocephalic and atraumatic Resp: COMMON NORMALS: normal respiratory effort, No retractions, No use of accessory muscles and clear to auscultation bilaterally AUSCULTATION: clear to auscultation bilaterally Cardio: COMMON NORMALS: regular rate, regular rhythm and No murmurs present (Cardio) RATE: regular rate RHYTHM: regular rhythm GI: COMMON NORMALS: Soft to palpation and No hepatosplenomegaly present AUSCULTATION: Yes normoactive bowel sounds PALPATION: Yes Soft to palpation, No Tenderness to palpation present (GI), No Guarding due to palpation present (GI) and Yes No hepatosplenomegaly present Extremity: OTHER: Ecchymosis in the right inguinal area and upper thigh anteriorly about the surgical thigh. There is significant swelling anteriorly but no induration no sign of infection the occlusive dressing was not removed. Was palpating wound to see if there was any fluctuance patient became angry and refused to allow further exam Neuro: SENSORIUM/ORIENTATION: Yes oriented to person, Yes oriented to place and Yes oriented to time Skin: COMMON NORMALS: no rashes or lesions noted GENERAL SKIN EXAM: no rashes or lesions noted Course Vital Signs: Vital signs: Vital Signs Temperature 98.0 F 01/31/23 13:39 Pulse Rate 103 H 01/31/23 13:39 Respiratory Rate 19 H 01/31/23 13:39 Blood Pressure 183/98 01/31/23 13:39 Pulse Oximetry 98 01/31/23 15:25 Oxygen Delivery Me thod 01/31/23 15:25 MDM - Psych Medical Decision Making Chart reviewed labs reviewed. Plain films do not show any periprosthetic fractures or abnormalities. On exam I suspect he has a hematoma in the incision site although he would not tolerate close exam. There did not appear to be any infection. He was initially placed on a 96-hour hold for suicidal ideation Dr. Pace was consulted. He did not feel the patient was actually suicidal but left a 96-hour hold in place he went to evaluate the patient on the psych floor to see if there are medication adjustments that could be made that would help patient be more compliant with his postop care. Patient became belligerent because he wanted a particular narcotic for pain and was angry he had not gotten and gotten something else instead. He wanted Demerol we given morphine. He demanded to leave. I contacted Dr. Pace regarding this. Dr. Pace rescinded the 96 we both felt if keeping him here was confrontational run the risk of harming is a decision and arthroplasty. 96 was rescinded patient left AMA. We attempted to dissuade the patient vies make return at any time. Medical Records I reviewed the patient's medical records. Lab Data I reviewed the patient's lab results. 01/31/23 15:00 01/31/23 15:00 Radiology Impressions Hip/Pelvis X-Ray 01/31/23 14:02 IMPRESSION: Stable appearance of the total right hip arthroplasty. Chest X-Ray 01/31/23 14:03 IMPRESSION: Low lung volumes bilaterally slightly improved. Slightly improved bilateral basal atelectasis Laboratory Results WBC 7.3 10^3/uL (4.0-10.0) 01/31/23 15:00 RBC 3.88 10^6/uL (4.1-5.3) L 01/31/23 15:00 Hgb 11.3 g/dL (11.7-16.6) L 01/31/23 15:00 Hct 34.7 % (42.0-52.0) L 01/31/23 15:00 MCV 89.4 fl (80-94) 01/31/23 15:00 MCH 29.1 pg (28.0-34.0) 01/31/23 15:00 MCHC 32.6 g/dL (30.0-36.0) 01/31/23 15:00 RDW 13.6 % (12.1-15.1) 01/31/23 15:00 Plt Count 149 10^3/cmm (130-400) 01/31/23 15:00 MPV 10.9 fL (7.4-10.4) H 01/31/23 15:00 Neut % (Auto) 74.9 % 01/31/23 15:00 Lymph % (Auto) 15.4 % 01/31/23 15:00 [place] % (Auto) 8.8 % 01/31/23 15:00 Eos % (Auto) 0.5 % 01/31/23 15:00 Baso % (Auto) 0.3 % 01/31/23 15:00 Neut # (Auto) 5.46 10^3/uL (1.8-7.7) 01/31/23 15:00 Lymph # (Auto) 1.1 10^3/uL (0.8-4.8) 01/31/23 15:00 [place] # (Auto) 0.6 10^3/uL (0.2-0.9) 01/31/23 15:00 Eos # (Auto) 0.0 10^3/uL (0.0-0.8) 01/31/23 15:00 Baso # (Auto) 0.0 10^3/uL (0.0-0.1) 01/31/23 15:00 Nucleated RBC % (auto) 0 % 01/31/23 15:00 Nucleated RBCs # 0.0 /100WBC 01/31/23 15:00 Sodium 140 mmol/L (136-145) 01/31/23 15:00 Potassium 4.0 mmol/L (3.5-5.1) 01/31/23 15:00 Chloride 104 mmol/L (98-107) 01/31/23 15:00 Carbon Dioxide 26 mmol/L (22-29) 01/31/23 15:00 Anion Gap 14.0 (5-19) 01/31/23 15:00 BUN 10 mg/dL (6-20) 01/31/23 15:00 Creatinine 1.0 mg/dL (0.7-1.2) 01/31/23 15:00 GFR Calculation 76.5 mL/min (90-130) L 01/31/23 15:00 Glucose 111 mg/dL (65-115) 01/31/23 15:00 Calculated Osmolality 290 mOsm/kg (285-295) 01/31/23 15:00 Calcium 9.0 mg/dL (8.5-10.5) 01/31/23 15:00 Total Bilirubin 0.8 mg/dL (0.15-1.2) 01/31/23 15:00 AST 64 U/L (0-40) H 01/31/23 15:00 ALT 33 U/L (0-41) 01/31/23 15:00 Alkaline Phosphatase 58 U/L (40-130) 01/31/23 15:00 Total Protein 6.4 g/dL (6.6-8.7) L 01/31/23 15:00 Albumin 3.8 g/dL (3.5-5.2) 01/31/23 15:00 Globulin 2.6 g/dL (1.3-4.6) 01/31/23 15:00 Salicylates < 0.3 mg/dL (3-10) L 01/31/23 15:00 Acetaminophen < 5.0 ug/mL (10-30) L 01/31/23 15:00 Ethyl Alcohol < 10 mg/dL (0-10) 01/31/23 15:00 Discharge Plan Discharge Patient Disposition: Left Against Medical Advice Clinical Impression: Antisocial personality disorder in adult, Chronic schizophrenia, S/P total right hip arthroplasty, Postoperative hematoma, Noncompliance Condition: Stable Prescriptions: No Action oxycodone-acetaminophen [Percocet] 5-325 mg tablet 2 tab PO Q6H PRN (Reason: pain) 7 Days Qty: 56 0RF Rx Instructions: [facility] on sd for medicaid to pay for lisinopril 10 mg Tablet 10 mg PO DAILY atorvastatin 40 mg Tablet 40 mg PO BEDTIME amlodipine 10 mg Tablet 10 mg PO DAILY docusate sodium 100 mg Tablet 100 mg PO DAILY levothyroxine 112 mcg Tablet 112 mcg PO QAM citalopram 40 mg tablet 40 mg PO DAILY trazodone 50 mg tablet 50 mg PO BEDTIME PRN (Reason: Sleep) meloxicam 7.5 mg tablet 7.5 mg PO BID mirtazapine 15 mg tablet 15 mg PO BEDTIME bupropion HCl 300 mg tablet extended release 24 hr 300 mg PO DAILY Referrals: Sana Villafana DO [Primary Care Provider] - Coding Level of Care Code ED Vector Control Specialist for deng Khan
--- NOTE | 2023-01-31 14:02 | XR_ITS ---
WS: [id number] EXAMINATION: XR hip RT 2-3V wo/w pel* [id number] REASON FOR EXAM: recent hip arthroplasty COMPARISON: 01/29/2023 ORDER DATE: 01/31/2023 2:02 PM TECHNIQUE: Frontal internal/external rotation views of the right hip were obtained. X-RAY FINDINGS: There is satisfactory alignment of the prostheses at the right hip joint. There is no sign of periprosthetic osseous abnormality or hardware failure. Soft tissues are unremarkable. XR/XR hip RT 2-3V wo/w pel* [id number] IMPRESSION: Stable appearance of the total right hip arthroplasty.
--- NOTE | 2023-01-31 14:02 | ECG_ITS ---
[facility] Test Date: 2023-01-31 Pat Name: Ac Cazares Department: Room: Gender: Male [place]ter: : 1965 Requested By: Abdirahman Trujillo Order Number: [id number] Ezra MD: Chelita Desouza M.D. Measurements Intervals [place] Rate: 73 P: 36 AK: 143 QRS: 62 QRSD: 91 T: 49 QT: 387 QTc: 428 Interpretive Statements SINUS RHYTHM Compared to ECG 01/29/2023 07:39:35 No significant changes Electronically Signed On 01-31-2023 23:03:16 CDT by Chelita Desouza M.D. [id number]
--- NOTE | 2023-01-31 14:03 | XR_ITS ---
WS: [id number] EXAMINATION: XR chest 1V portable [id number] REASON FOR EXAM: dyspnea/cough COMPARISON: 01/29/2023 ORDER DATE: 01/31/2023 2:03 PM TECHNIQUE: A single, portable frontal chest x-ray was obtained. X-RAY FINDINGS: There is moderate improvement in the bilateral basal atelectasis, greater on the right Pleural spaces are clear. No pleural effusions or pneumothorax. Cardiomediastinal silhouette is normal. No evidence for pulmonary edema. Soft tissue and osseous structures are unremarkable. No tubes or lines are present. XR/XR chest 1V portable [id number] IMPRESSION: Low lung volumes bilaterally slightly improved. Slightly improved bilateral bas al atelectasis
--- NOTE | 2023-01-31 14:25 | PC.PHAR ---
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
[2023-01-31] MEDS: ondansetron 2 mg/ML SDV 2 mL 4 MG IVP (14:38)
[2023-01-31] MEDS: morphine 4 mg/mL SDV 1 mL IVP (14:38)
[2023-01-31 15:11] LABS: Basophils % 0.3 %; Eosinophils % 0.5 %; Hematocrit 34.7 % (42.0-52.0); Hemoglobin 11.3 g/dL (11.7-16.6); Lymphocytes # 1.1 10^3/uL (0.8-4.8); Lymphocytes % 15.4 %; Mean Corpuscular HGB Conc 32.6 g/dL (30.0-36.0); Mean Corpuscular Hemoglobin 29.1 pg (28.0-34.0); Mean Corpuscular Volume 89.4 fl (80-94); Mean Platelet Volume 10.9 fL (7.4-10.4); Monocytes # 0.6 10^3/uL (0.2-0.9); Monocytes % 8.8 %; Neutrophils # 5.46 10^3/uL (1.8-7.7); Neutrophils % 74.9 %; Nucleated Red Blood Cells % 0 %; Platelet Count 149 10^3/cmm (130-400); Red Blood Count 3.88 10^6/uL (4.1-5.3); Red Cell Distribution Width 13.6 % (12.1-15.1); White Blood Count 7.3 10^3/uL (4.0-10.0)
[2023-01-31 15:25] VITALS: O2SAT 98
[2023-01-31 15:25] LABS: Alanine Aminotransferase 33 U/L (0-41); Albumin Level 3.8 g/dL (3.5-5.2); Alkaline Phosphatase 58 U/L (40-130); Aspartate Amino Transferase 64 U/L (0-40); Blood Urea Nitrogen 10 mg/dL (6-20); Carbon Dioxide 26 mmol/L (22-29); Chloride 104 mmol/L (98-107); Globulin 2.6 g/dL (1.3-4.6); Glomerular Filtration Rate 76.5 mL/min (90-130); Glucose 111 mg/dL (65-115); Osmolality Calculated 290 mOsm/kg (285-295); Sodium 140 mmol/L (136-145); Total Bilirubin 0.8 mg/dL (0.15-1.2); Total Protein 6.4 g/dL (6.6-8.7)
[2023-01-31 15:35] LABS: Acetaminophen < 5.0 ug/mL (10-30); Alcohol Level < 10 mg/dL (0-10); Salicylate < 0.3 mg/dL (3-10)
--- NOTE | 2023-01-31 15:48 | PC.NURSE ---
96 hr rights reviewed with pt, and copy left at bedside @[id number]. Pt states he will walk out of this place if he wants to, and that [employer] or any other person cannot stop him. Pt educated on reasoning for 96 hr hold decision, based on comments patient made to [facility] healthcare staff. Copy of rights left with pt. No other questions from patient at this time.
== END 2023-01-31 17:11 | disposition left against medical advice (07) ==
PROVIDERS: Emergency Provider Family Medicine; PCP Family Medicine
DX: L76.32 Postprocedural hematoma of skin and subcutaneous tissue following other procedure (principal); F60.2 Antisocial personality disorder; F20.89 Other schizophrenia; F17.200 Nicotine dependence, unspecified, uncomplicated; Y83.8 Other surgical procedures as the cause of abnormal reaction of the patient, or of later complication, without mention of misadventure at the time of the procedure; Z96.641 Presence of right artificial hip joint; Z53.21 Procedure and treatment not carried out due to patient leaving prior to being seen by health care provider
CPT/HCPCS: 36415; 71045; 73502; 80053; 80307; 85025; 93005; 96374; 96375; 99285; J2270; J2405

== ENCOUNTER 2023-02-02 13:35 | Emergency (ER) | payer MEDICAID, SELFPAY ==
[2023-02-02 13:42] VITALS: BP 153/91; PULSE 90; TEMP 36.7; O2SAT 97; BMI 28.7
--- NOTE | 2023-02-02 14:23 | ED_ITS ---
HPI - General Adult General: Chief complaint: General Medical Stated complaint: wants surgical dressing changed Time Seen by Provider: 02/02/23 13:38 History of Present Illness: Patient is a 58-year-old man that presents to the emergency department for dressing change and requesting pain medication. He underwent a right total hip replacement on 01/29/2023. Patient was dissatisfied with pain management in the hospital and left AMA. A prescription for Percocet was called in but patient has not been able to pick it up due to an issue with Medicaid. Patient does have a surgical site dressing that is intact. Associated symptoms: Deny chest pain, confusion, dyspnea, headache(s), malaise, nausea, rash, palpitations or vomiting Review of Systems General: Reports: 10 or more systems reviewed and unremarkable except in HPI and below Const: Denies: fever(s), chills, change in appetite, change in weight, fatigue or malaise Eyes: Denies: change in vision, eye discomfort, eye discharge or eye redness ENMT: Denies: throat pain, enlarged tonsils, odynophagia, hoarseness, ear or mastoid pain, ear discharge, change in hearing, tinnitus, nasal discharge, nasal congestion, post nasal drip or sinus pain Card: Denies: chest pain, palpitations, irregular heart rhythm, edema, dyspnea on exertion, orthopnea or leg pain with exertion Resp: Denies: dyspnea, productive cough, non-productive cough, wheezing, stridor or chest congestion GI: Denies: abdominal pain, nausea, vomiting, dysphagia, diarrhea, constipation, bloating, GI cramping or hematochezia : Denies: flank pain, dysuria, urinary frequency, urinary urgency, urinary hesitancy, oliguria or hematuria Musc: Reports: extremity pain, joint pain and joint swelling; Denies: neck pain, back pain, joint redness, joint warmth or muscle weakness Skin/Breast: Denies: rash, pruritus, erythema, photosensitivity or new lesions Neuro: Reports: other; Denies: headache(s), numbness in extremities, weakness in extremities, sensory changes, lack of coordination, difficulty walking, frequent falls, dizziness, confusion, Slurred speech present, seizure-like activity or involuntary movements Endo: Denies: polyuria, polydipsia or tired all the time Eron/Lymph: Denies: easy bruising or easy bleeding PFS ED PFSH: Medical History Avascular necrosis of femur head, right Depression Depression Psychiatric care Social History Smoking and tobacco status: current every day smoker Physical Exam Const: COMMON NORMALS: no acute distress, patient oriented x3 and alert GENERAL APPEARANCE: cooperative ORIENTATION/CONSCIOUSNESS: Yes awake, Yes oriented to person, Yes oriented to place and Yes oriented to time HENMT: COMMON NORMALS: normocephalic and atraumatic HEAD & SCALP: normocephalic and atraumatic FACE & SINUS: normal facial exam MOUTH: Normal oral and palatal mucosa present THROAT: posterior oropharynx normal Eye: COMMON NORMALS: Equal, round and reactive pupils present, EOMs intact bilaterally, conjunctivae normal and no scleral icterus GENERAL EYE: appearance normal, both eyes and all related structures ALIGNMENT: Yes alignment normal PERIORBITAL: periorbital findings normal CONJUNCTIVA: Yes conjunctivae normal PUPIL: Yes Equal, round and reactive pupils present Neck/C-Spine: COMMON NORMALS: full ROM GENERAL: Yes normal visual inspection Lymph: LYMPHATIC: no lymphadenopathy noted Chest: COMMONS NORMALS: normal inspection of the chest Breast/axilla inspection: Yes no chest deformity, asymmetry, normal contours, no nodules, masses, tenderness Resp: COMMON NORMALS: normal respiratory effort, No retractions, No use of accessory muscles and clear to auscultation bilaterally EFFORT & INSPECTION: Yes able to speak in complete sentences and Yes symmetric chest movement AUSCULTATION: clear to auscultation bilaterally Cardio: COMMON NORMALS: regular rate, regular rhythm and Peripheral pulses 2+ throughout RATE: regular rate RHYTHM: regular rhythm PERIPHERAL PULSES: Peripheral pulses 2+ throughout GI: COMMON NORMALS: Normal to inspection, nondistended, normoactive bowel sounds present, Soft to palpation, non-tender and No hepatosplenomegaly present INSPECTION: Yes normal to inspection AUSCULTATION: Yes normoactive bowel sounds PALPATION: Yes Soft to palpation and Yes No hepatosplenomegaly present RECTAL EXAM: Yes deferred Extremity: NARRATIVE EXTREMITY EXAM: Lower extremity Fresh anterior approach total hip arthroplasty surgical site No erythema warmth or drainage Mild postoperative swelling GENERAL: Yes normal exam except as noted Neuro: COMMON NORMALS: patient oriented x3 SENSORIUM/ORIENTATION: Yes alert, Yes oriented to person, Yes oriented to place and Yes oriented to time CRANIAL NERVES: Yes CN normal except as noted Psych: COMMON NORMALS: mental status grossly normal, Normal thought process present, cooperative, speech normal, activity/motor behavior normal, denies homicidal ideation and denies suicidal ideation APPEARANCE: Yes unkempt and Yes disheveled ATTITUDE: Yes Belligerent attititude/behavior present, Yes agitated, Yes aggressive and Yes hostile ACTIVITY/MOTOR BEHAVIOR: Yes disorganized behavior SPEECH: Yes normal speech MOOD & AFFECT: Yes hostile affect THOUGHT PROCESS: Normal thought process present THOUGHT CONTENT: No Suicidality present and No Homicidality present Skin: COMMON NORMALS: no rashes or lesions noted, no wounds and turgor normal GENERAL SKIN EXAM: no rashes or lesions noted and turgor normal Course Vital Signs: Vital signs: Vital Signs Temperature 98.1 F 02/02/23 13:42 Pulse Rate 90 02/02/23 13:42 Blood Pressure 153/91 02/02/23 13:42 Pulse Oximetry 97 02/02/23 13:42 Oxygen Delivery Me thod 02/02/23 13:42 MDM - General Adult Medical Decision Making Patient was evaluated in the emergency department for right anterior hip pain. He presented stating that he needed pain medications released and dressing change. I personally changed his dressing I contacted [facility] pharmacy to find out the details around the medication release issue. [facility] pharmacy was awaiting a diagnosis code. Diagnosis code was updated with them. Furthermore, Medicaid would not approve current prescription for 2 tabs p.o. every 6 as needed pain for 7 days. Patient would be required to pay $65 for this prescription. I did check with the patient and he is unable to afford this. I contacted Dr. Rao, one of my attendings today, and he has sent a new prescription that will be approved by Medicaid?Percocet 1 tab p.o. 3 times daily. 20 tablets have been provided. I have instructed patient to contact one of his primary doctors for any further medication needs. Discharge Plan Discharge Patient Disposition: Home Clinical Impression: Deficient knowledge of wound care Condition: Stable Prescriptions: New Percocet 5-325 mg tablet 1 tab PO TID Qty: 20 0RF No Action oxycodone-acetaminophen [Percocet] 5-325 mg tablet 2 tab PO Q6H PRN (Reason: pain) 7 Days Qty: 56 0RF Rx Instructions: not picked up from [facility] pharmacy states waiting on nm for medicaid to pay for lisinopril 10 mg Tablet 10 mg PO DAILY atorvastatin 40 mg Tablet 40 mg PO BEDTIME amlodipine 10 mg Tablet 10 mg PO DAILY docusate sodium 100 mg Tablet 100 mg PO DAILY levothyroxine 112 mcg Tablet 112 mcg PO QAM citalopram 40 mg tablet 40 mg PO DAILY trazodone 50 mg tablet 50 mg PO BEDTIME PRN (Reason: Sleep) meloxicam 7.5 mg tablet 7.5 mg PO BID mirtazapine 15 mg tablet 15 mg PO BEDTIME bupropion HCl 300 mg tablet extended release 24 hr 300 mg PO DAILY Discharge Orders: Discharge ED (Routine); Ordered 02/02/23 Ordered By: María Cooper Referrals: Sana Villafana DO [Primary Care Provider] - Discharge Diet: Advance as tolerated Patient Instructions: Opioid Safety, Pain Management Activity Restrictions/Additional Instructions: Dressing changes as needed Follow your surgeons orders for restrictions. 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
== END 2023-02-02 14:42 | disposition home or self-care (01) ==
PROVIDERS: Emergency Provider Nurse Practitioner; PCP Family Medicine
DX: Z48.00 Encounter for change or removal of nonsurgical wound dressing (principal); F17.210 Nicotine dependence, cigarettes, uncomplicated
CPT/HCPCS: 99283

== ENCOUNTER 2023-05-28 14:38 | Outpatient (CLI) | payer MEDICAID, SELFPAY ==
--- NOTE | 2023-05-28 | XR_ITS ---
WS: [id number] Exam: XR hand LT min 3V* [id number] Date/Time of Exam: 05/28/2023 3:02 PM Reason For Exam: PAIN IN LEFT HAND There is a fracture of the distal fifth metacarpal with volar angulation of the metacarpal head. No o ther fractures are identified. Soft tissue swelling at the fracture site. There is moderate degenerat edyta change at the articulation of the scaphoid and greater and lesser multangular. XR/XR hand LT min 3V* [id number] IMPRESSION: 1. Fractured distal fifth metacarpal with mild volar angulation of the metacarp al head.
== END 2023-05-28 14:39 | disposition home or self-care (01) ==
PROVIDERS: PCP Family Medicine; Visit Provider Nurse Practitioner Family
DX: S62.397A Other fracture of fifth metacarpal bone, left hand, initial encounter for closed fracture (principal); X58.XXXA Exposure to other specified factors, initial encounter
CPT/HCPCS: 73130

== ENCOUNTER → 2023-06-05 09:31 | Outpatient (BNVA) | payer MEDICAID, SELFPAY | PROVIDERS: PCP Family Medicine; Visit Provider Nurse Practitioner Family | DX: Z96.641 Presence of right artificial hip joint; S62.307A Unspecified fracture of fifth metacarpal bone, left hand, initial encounter for closed fracture; W17.2XXA Fall into hole, initial encounter | CPT/HCPCS: 73130; 73502 ==

== ENCOUNTER 2023-06-05 11:02 | Outpatient (CLI) | payer MEDICAID, SELFPAY | END 2023-06-05 11:03 | disposition home or self-care (01) | LOC: SPT 11:03 | PROVIDERS: PCP Family Medicine; Visit Provider Nurse Practitioner Family | DX: Z46.89 Encounter for fitting and adjustment of other specified devices (principal); S62.307D Unspecified fracture of fifth metacarpal bone, left hand, subsequent encounter for fracture with routine healing; X58.XXXD Exposure to other specified factors, subsequent encounter | CPT/HCPCS: 97760; L3984 ==

== ENCOUNTER → 2024-02-26 11:18 | Outpatient (BNVA) | payer MEDICAID, SELFPAY | PROVIDERS: PCP Family Medicine; Visit Provider Family Medicine | DX: I10 Essential (primary) hypertension (principal); E03.9 Hypothyroidism, unspecified; F32.9 Major depressive disorder, single episode, unspecified | CPT/HCPCS: 80053; 80061; 80307; 81000; 84443; 85025 ==

== ENCOUNTER → 2024-02-27 15:21 | Outpatient (BNVA) | payer MEDICAID, SELFPAY | PROVIDERS: PCP Family Medicine; Visit Provider Family Medicine | DX: I10 Essential (primary) hypertension (principal); E03.9 Hypothyroidism, unspecified; F32.9 Major depressive disorder, single episode, unspecified; F60.2 Antisocial personality disorder; F15.21 Other stimulant dependence, in remission; F12.90 Cannabis use, unspecified, uncomplicated; F17.210 Nicotine dependence, cigarettes, uncomplicated; F10.20 Alcohol dependence, uncomplicated | CPT/HCPCS: 80307 ==

== ENCOUNTER 2024-03-31 09:54 | Outpatient (CLI) | payer MEDICAID, SELFPAY ==
--- NOTE | 2024-03-31 10:30 | CT_ITS ---
WS: [id number] CT ABDOMEN AND PELVIS NONCONTRAST HISTORY: bilateral abd hernia TECHNIQUE: Imaging performed through the abdomen and pelvis. Coronal and sagittal reformats are submi tted. All CT scans at [facility] use at least one of these dose optimization techniques: auto mated exposure control; mA and/or kV adjustment per patient size (includes targeted exams where dose is matched to clinical indication); or iterative reconstruction. DLP: 1368.99 mGy.cm COMPARISON: None available. Lower thorax: Mild elevation of the RIGHT hemidiaphragm with RIGHT basilar atelectasis. Heart is norm al size. Coronary artery calcifications. Liver: Normal size liver. No mass or bile duct dilatation. Gallbladder: Normal gallbladder. No pericholecystic fluid or cholelithiasis. No gallbladder wall thic kening. Pancreas: Normal size and attenuation. Normal pancreatic duct. No pancreatitis or mass. Spleen: Normal. Adrenal glands: Normal. No mass. Right kidney: Normal size kidney with no mass or hydronephrosis. Left kidney: Normal size kidney. There is a very slight subtle change in attenuation in the lower florinda e measuring 8 mm. A cyst was noted on a prior ultrasound from 12/05/2022 in this location. Aorta: Ectatic mildly atherosclerotic aorta. No aneurysm. There is mild aneurysmal dilatation of the RIGHT common iliac artery to 2.5 cm. No free fluid, intraperitoneal air or significant lymphadenopathy. GI tract: Normal stomach. No small bowel obstruction. Normal appendix. No colon obstruction. Abdominal wall: Very small umbilical hernia contains fat. Orifice is less than a centimeter. No addit ional abdominal wall hernia. Pelvis: There are bilateral inguinal canal hernias containing omentum. The LEFT is slightly larger th an the RIGHT. No adenopathy. No free fluid. Urinary bladder is nondistended causing mild bladder wall thickening. Osseous structures: L4 anterolisthesis by 3 mm. Prior RIGHT hip arthroplasty. CT/CT abdomen pelvis wo con [id number] IMPRESSION: 1. Small umbilical hernia contains fat only. Orifice of this hernia is less th an a centimeter. 2. Bilateral inguinal canal hernias containing fat only. 3. Small RIGHT common leg artery aneurysm, 2.5 cm. 4. Mildly ectatic abdominal aorta without aneurysm. 5. Mild elevation RIGHT hemidiaphragm with RIGHT basilar compressive atelectas is.
== END 2024-03-31 09:55 | disposition home or self-care (01) ==
LOC: RAD 09:54
PROVIDERS: PCP Family Medicine; Visit Provider Family Medicine
DX: K40.20 Bilateral inguinal hernia, without obstruction or gangrene, not specified as recurrent (principal); J98.11 Atelectasis; N28.89 Other specified disorders of kidney and ureter; R93.41 Abnormal radiologic findings on diagnostic imaging of renal pelvis, ureter, or bladder; Z98.890 Other specified postprocedural states; M43.16 Spondylolisthesis, lumbar region; K42.9 Umbilical hernia without obstruction or gangrene; I72.8 Aneurysm of other specified arteries
CPT/HCPCS: 74176

== ENCOUNTER → 2024-12-08 14:10 | Outpatient (BNVA) | payer MEDICAID, SELFPAY | DX: I10 Essential (primary) hypertension (principal); E03.9 Hypothyroidism, unspecified | CPT/HCPCS: 80053; 84439; 84443 ==

== ENCOUNTER → 2025-01-19 16:10 | Outpatient (BNVA) | payer MEDICAID, SELFPAY | PROVIDERS: Visit Provider Family Medicine | DX: E03.9 Hypothyroidism, unspecified (principal); I10 Essential (primary) hypertension | CPT/HCPCS: 80061; 84443; 85025 ==

== ENCOUNTER 2025-03-02 10:25 | Day surgery (SDC) | payer MEDICAID, SELFPAY ==
[2025-03-02] VITALS (11 sets, daily range): BP systolic 132–173; BP diastolic 85–111; PULSE 59–108; RESP 14–18; TEMP 36.1–36.9; O2SAT 93–99; BMI 29.4
[2025-03-02] MEDS: sodium chloride 0.9% 1,000 ML 30 ML IV (10:51)
[2025-03-02] MEDS: VANCOMYCIN ADD-Vantage 1,000 MG in 0.9% NaCl ADD-Vantage 250 ML 250 MG IV (10:52)
--- NOTE | 2025-03-02 11:12 | ANES.PREANE2 ---
Pre-Anesthetic Assessment Height/Weight: Height 5 ft 10 in Weight 205 lb Temp Pulse Resp BP Pulse Ox O2 Del Method 98.4 F 59 L 16 173/109 97 Room Air 03/02/25 10:39 03/02/25 10:39 03/02/25 10:39 03/02/25 10:39 03/02/25 10:39 03/02/25 10:39 Preop Diagnosis: Hernia Operation Date: 03/02/25 11:55 Proposed Procedures p open umbilical hernia repair with mesh 77243 K42.9(Not Applicable) - Iraj Owens MD Was Beta Gunjan taken within 24 hours: N/A Was Clonidine taken within 24 hours: N/A Last intake: Intake Last Liquid Date 03/01/25 Last Liquid Time 21:45 Last Solid Date 03/01/25 Last Solid Time 20:00 Social Tobacco and No alcohol Quit drinking alcohol 20 years ago he says Exam alert, oriented x 3 and regular rate & rhythm Decreased breath sounds bilaterally Airway Submandibular: within normal limits Cervical ROM: within normal limits Mallampati: Class III Dentition: full Comments: Comments: Multiple missing bottom teeth denies any loose. Very large banuelos Anesthetic Plan ASA status: 3 Anesthesia: General Other: No prior history with issues during anesthesia NPO since yesterday evening History of hypothyroidism on Synthroid Hypertension on losartan. Preop BP 173/109 Patient does have a history of alcohol use disorder and methamphetamine abuse. Patient states that he has been clean from alcohol for 20 years and stopped using meth 2 years ago Current smoker, nicotine and marijuana Recent labs reviewed and acceptable for procedure Prior EKG showing sinus rhythm Patient states that the only pain med that works for him is Demerol. States that last time he left the recovery area because they would not give him adequate pain meds Plan for general anesthesia Medications/Allergies Home Medications ?Medication ?Instructions ?Recorded ?Confirmed ?Last Taken ?Type atorvastatin 40 mg tablet 40 mg PO BEDTIME #90 tabs 01/19/25 03/02/25 03/01/25 Rx levothyroxine 112 mcg tablet 112 mcg PO QAM #90 tabs 01/19/25 03/01/25 03/01/25 Rx losartan 50 mg tablet 50 mg PO DAILY #30 tabs 01/19/25 03/01/25 02/28/25 Rx Allergies Allergy/AdvReac Type Severity Reaction Status Date / Time Penicillins Allergy Severe Verified 03/01/25 15:54 Robbins Allergy Mild other Uncoded 03/01/25 15:54 Sunlight AdvReac Intermediate Dizziness. 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 Administration Protocol [facility] Anesthesia Medical History Tobacco use disorder Polio Hypothyroidism Essential hypertension Antisocial personality disorder Alcohol use disorder, severe, dependence Cannabis use disorder Methamphetamine use disorder, severe, in early remission, dependence Major depressive disorder Malingering Avascular necrosis of femur head, right Surgical History History of right hip replacement Social History Smoking and tobacco/nicotine status: current every day tobacco/nicotine user cigarettes Packs smoked per day: 0.5 Alcohol intake: never Substance/Drug Use: former Former substance use details: Meth Adopted: No service: No Current occupational exposures/hazards: No Current gender identity: Male Data Anesthesia Cardiac Studies: No Data to Display
--- NOTE | 2025-03-02 11:14 | W.PM.OPSFHP ---
Same Day Surgery H&P Indication for Procedure/HPI DATE OF PROCEDURE: March 02, 2025 CHIEF COMPLAINT/INDICATIONFOR SURGICAL PROCEDURE: symptomatic umibilical hernia PREOP DIAGNOSIS: symptomatic umibilical hernia PLANNED PROCEDURE: Operation Date: 03/02/25 11:55 Proposed Procedures p open umbilical hernia repair with mesh 90396 K42.9(Not Applicable) - Iraj Owens MD Medications/Allergies* Allergies/Adverse Reactions Allergy/AdvReac Type Severity Reaction Status Date / Time Penicillins Allergy Severe Verified 03/01/25 15:54 Vidor Allergy Mild other Uncoded 03/01/25 15:54 Sunlight AdvReac Intermediate Dizziness. 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 Administration Protocol Pertinent History/Comorbid Conditions* Medical History (Updated 01/19/25 @ 16:00 by Sergei Montoya MD) Tobacco use disorder Polio Hypothyroidism Essential hypertension Antisocial personality disorder Alcohol use disorder, severe, dependence Cannabis use disorder Methamphetamine use disorder, severe, in early remission, dependence Major depressive disorder Malingering Avascular necrosis of femur head, right Surgical History (Updated 02/26/24 @ 10:59 by Sergei Montoya MD) History of right hip replacement Social History Smoking and tobacco/nicotine status: current every day tobacco/nicotine user cigarettes Packs smoked per day: 0.5 Alcohol intake: never Substance/Drug Use: former Former substance use details: Meth Adopted: No service: No Current occupational exposures/hazards: No Current gender identity: Male Pertinent Exam Findings alert, oriented x 3, clear to auscultation bilaterally, regular rate & rhythm and procedure specific exam findings abdomen soft, nt, nd Recommendations Risks and benefits of procedure reviewed Surgery/Procedure today Other Plans: Proceed with open umbilical hernia repair Coding Level of Care Code Acute Code for Chg Fwd
[2025-03-02] MEDS: midazolam 1 mg/mL INJ 2 mL 2 MG IVP (11:46)
[2025-03-02] MEDS: lidocaine-epi 1% PF 1:200,000 30 mL SDV INJECTION (13:00)
--- NOTE | 2025-03-02 13:03 | P.OP_ITS ---
Operative Report Date of procedure: March 02, 2025 Pre-op diagnosis: Umbilical hernia Post-op diagnosis: same Post-op findings: 1 cm fascial defect at umbilical hernia. 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 Repaired using Ventralex ST mesh 4.3 cm in diameter and sutured fascia anterior to it. Condition: stable Disposition: same day Brief History: 60-year-old male who presented with an umbilical hernia. Discussed risk and benefits and patient agreed to proceed with open umbilical hernia repair with mesh. Procedure: Consent was obtained in the preop area. Patient was transferred to the OR and laid supine. SCDs were on and working. Preoperative antibiotics were administered. General anesthesia was induced. The abdomen was prepped and draped in usual sterile fashion. A 3 cm curvilinear incision at the umbilicus was carried out with a scalpel. Electrocautery was used to dissect down to the fascial layer. Blunt dissection was used to dissect around the hernia defect. Skin was dissected off hernia sac using electrocautery. Hernia contents consisted of fat only and these were reduced into the abdominal cavity. Electrocautery was used to freshen up the fascial edges. A 1 cm fascial defect was found. A 4.[address] mesh was used to repair the fascial defect. The fascia was then closed anterior to the Ventralex ST mesh using continuous 2- 0 Ethibond. The mesh was fixed to the fascia by incorporating the flap with a few bites of the 2-0 Ethibond. Adequate hemostasis was achieved using electrocautery. The umbilicus was recreated using a 2-0 Vicryl by suturing the dermis to the fascia. The deep dermal layer was closed using 3-0 Vicryl. Skin was closed using subcuticular 4-0 Monocryl. Surgical glue was applied. A sterile dressing was applied. The patient will come for anesthesia without any complications.
--- NOTE | 2025-03-02 14:32 | ANE.PACU2 ---
Inpatient post-anesthesia follow up: Airway intact: Yes Vital signs: Temperature 98 F Pulse Rate 74 Respiratory Rate 16 Blood Pressure 136/90 Pulse Oximetry 94 Oxygen Delivery Me thod Room Air Oxygen Flow Rate 6 Fraction of Inspir ed Oxygen Hydration adequate: Yes Nausea and vomiting: No Pain level: 1 Mental status: Baseline
== END 2025-03-02 14:55 | disposition home or self-care (01) ==
PROVIDERS: PCP Family Medicine; Visit Provider Student in an Organized Health Care Education/Training Program
PROC: (CPT 49591; principal; 2025-03-02 11:55)
DX: K42.9 Umbilical hernia without obstruction or gangrene (principal); I10 Essential (primary) hypertension; E03.9 Hypothyroidism, unspecified; F17.210 Nicotine dependence, cigarettes, uncomplicated; Z79.890 Hormone replacement therapy; Z79.899 Other long term (current) drug therapy; Z88.0 Allergy status to penicillin
CPT/HCPCS: 49591; C1781; J1100; J1885; J2250; J2405; J2704; J3010; J3370; J3490; J7030; J7050; J9999